=== PATIENT | male | born 1950 | race Asian ===

== ENCOUNTER 2017-06-29 18:34 | Inpatient (IN) | payer MEDICARE, OTHER ==
[2017-06-29] MEDS: IPRATROPIUM (NEB) 0.5 MG/2.5 ML AMP INH (18:57)
[2017-06-29] MEDS: ALBUTEROL 0.5% (NEB) 2.5 MG/0.5 ML AMP INH (18:57)
[2017-06-29] MEDS: METHYLPREDNISOLONE 125 MG INJ IV (19:16)
[2017-06-29 19:45] LABS: ADD MAN DIFF? NO
[2017-06-29 19:48] LABS: WHITE BLOOD COUNT 9.1 10^3/ul (4.8-10.8)
[2017-06-29 19:48] LABS: BASOPHIL # 0.2 10^3/ul (0.0-0.1); EOSINOPHILS # 0.9 10^3/ul (0.0-0.5); EOSINOPHILS % 10.3 % (0.0-7.0); HEMATOCRIT 34.1 % (42.0-52.0); HEMOGLOBIN 10.7 g/dl (14.0-18.0); LYMPHOCYTES # 1.9 10^3/ul (0.8-2.9); LYMPHOCYTES % 20.8 % (15.0-51.0); MEAN CORPUSCULAR HEMOGLOBIN 31.8 pg (29.0-33.0); MEAN CORPUSCULAR HGB CONC 31.4 g/dl (32.0-37.0); MEAN CORPUSCULAR VOLUME 101.2 fl (82.0-101.0); MONOCYTE # 1.1 10^3/ul (0.3-0.9); MONOCYTES % 11.5 % (0.0-11.0); NEUTROPHILS % 55.2 % (39.0-77.0); PLATELET COUNT 338 10^3/UL (140-415); RED BLOOD COUNT 3.37 10^6/ul (4.70-6.10); RED CELL DISTRIBUTION WIDTH 17.9 % (11.5-14.5)
[2017-06-29] MEDS: LORAZEPAM 2 MG INJ IV (20:00)
[2017-06-29 20:08] LABS: ANION GAP 13 (8-16); BLOOD UREA NITROGEN 27 mg/dl (7-20); CALCIUM 9.1 mg/dl (8.4-10.2); CARBON DIOXIDE 34 mmol/L (21-31); CHLORIDE 100 mmol/L (97-110); CREATININE 3.32 mg/dl (0.61-1.24); GLUCOSE 126 mg/dl (70-220); POTASSIUM 3.7 mmol/L (3.5-5.1); SODIUM 143 mmol/L (135-144)
[2017-06-29 20:21] LABS: TROPONIN-I < 0.012 ng/ml (0.000-0.120)
[2017-06-29] MEDS ORDERED: NICARDipine HCL 30 MG CAPSULE PO (20:30)
[2017-06-29] MEDS: NICARDipine HCL 30 MG CAPSULE GTB (21:14)
[2017-06-30] MEDS ORDERED: ONDANSETRON 4 MG INJ IV
[2017-06-30] MEDS ORDERED: NACL 0.9% 3 ML SYG IV
[2017-06-30] MEDS: SOD CHLORIDE 0.9% 1,000 ML IV ×2 (00:26→21:55)
[2017-06-30] MEDS: LOSARTAN 50 MG TAB GTB ×3 (00:27→23:41)
[2017-06-30] MEDS: DILTIAZEM 30 MG TAB GTB ×2 (00:27→07:00)
[2017-06-30] MEDS: METOPROLOL 100 MG TAB GTB ×3 (00:28→23:42)
[2017-06-30] MEDS: QUETIAPINE 25 MG TAB GTB ×3 (00:28→23:42)
[2017-06-30] MEDS: CHLORHEXIDINE GLUCONATE 15 ML UD CUP MM ×3 (00:29→23:43)
[2017-06-30] MEDS ORDERED: ZOLPIDEM 5 MG TAB GTB (00:30)
[2017-06-30] MEDS: LEVALBUTEROL (NEB) 0.63 MG/3 ML AMP HHN ×6 (01:04→20:38)
[2017-06-30] MEDS: SUCRALFATE (100 MG/ML) 10ML CUP GTB ×4 (06:59→23:40)
[2017-06-30 07:55] LABS: ADD MAN DIFF? NO
[2017-06-30 08:07] LABS: WHITE BLOOD COUNT 6.7 10^3/ul (4.8-10.8)
[2017-06-30 08:07] LABS: ABNORMAL IP MESSAGE 1; BASOPHILS % 0.3 % (0.0-2.0); HEMATOCRIT 32.8 % (42.0-52.0); HEMOGLOBIN 10.4 g/dl (14.0-18.0); LYMPHOCYTES # 0.4 10^3/ul (0.8-2.9); LYMPHOCYTES % 5.2 % (15.0-51.0); MEAN CORPUSCULAR HEMOGLOBIN 31.7 pg (29.0-33.0); MEAN CORPUSCULAR HGB CONC 31.7 g/dl (32.0-37.0); MONOCYTES % 0.4 % (0.0-11.0); NEUTROPHIL # 6.3 10^3/ul (1.6-7.5); NEUTROPHILS % 93.7 % (39.0-77.0); PLATELET COUNT 357 10^3/UL (140-415); POSITIVE DIFF @See below; RED BLOOD COUNT 3.28 10^6/ul (4.70-6.10); RED CELL DISTRIBUTION WIDTH 18.2 % (11.5-14.5)
[2017-06-30 08:31] LABS: DIGOXIN < 0.4 ng/ml (1.0-2.0)
[2017-06-30 08:34] LABS: ALANINE AMINOTRANSFERASE 21 IU/L (13-69); ALBUMIN 3.8 g/dl (3.3-4.9); ALBUMIN/GLOBULIN RATIO 1.02; ALKALINE PHOSPHATASE 105 IU/L (42-121); ANION GAP 22 (8-16); ASPARTATE AMINO TRANSFERASE 27 IU/L (15-46); BLOOD UREA NITROGEN 37 mg/dl (7-20); CALCIUM 8.9 mg/dl (8.4-10.2); CARBON DIOXIDE 27 mmol/L (21-31); CHLORIDE 98 mmol/L (97-110); CHOL/HDL RATIO 2.9 RATIO; CHOLESTEROL 144 mg/dl (100-200); CREATININE 3.96 mg/dl (0.61-1.24); GLUCOSE 222 mg/dl (70-220); HDL CHOLESTEROL 49 mg/dl (30-78); LDL CHOLESTEROL,CALCULATED 72 mg/dl; MAGNESIUM 2.3 mg/dl (1.7-2.5); POTASSIUM 4.9 mmol/L (3.5-5.1); SODIUM 142 mmol/L (135-144); TOTAL PROTEIN 7.5 g/dl (6.1-8.1); TRIGLYCERIDES 114 mg/dl (0-149)
[2017-06-30] MEDS: AMIODARONE 200 MG TAB GTB (08:50)
[2017-06-30] MEDS: LANTHANUM 500 MG CHEW GTB ×3 (08:50→23:41)
[2017-06-30] MEDS: LANSOPRAZOLE 30 MG CAP GTB (08:50)
[2017-06-30] MEDS: METHYLPREDNISOLONE 40 MG INJ IV ×2 (08:51→21:41)
[2017-06-30 09:01] LABS: B-TYPE NATRIURETIC PEPTIDE 61300 PG/ML (0-125)
[2017-06-30 09:03] LABS: BILIRUBIN,INDIRECT 0.1 mg/dl (0-1.1); BILIRUBIN,TOTAL 0.1 mg/dl (0.2-1.3)
[2017-06-30] MEDS: DIGOXIN 500 MCG INJ IV (11:24)
[2017-06-30] MEDS: DILTIAZEM 60 MG TAB GTB ×3 (12:34→23:43)
[2017-06-30 16:28] LABS: HEPATITIS B SURFACE ANTIGEN NEGATIVE (NEGATIVE)
[2017-06-30 16:58] LABS: HEPATITIS B SURFACE ANTIBODY NEGATIVE (NEGATIVE)
[2017-06-30] MEDS: LORAZEPAM 2 MG INJ IV (17:01)
[2017-07-01] MEDS: LEVALBUTEROL (NEB) 0.63 MG/3 ML AMP HHN ×6 (00:20→20:03)
[2017-07-01] MEDS: SUCRALFATE (100 MG/ML) 10ML CUP GTB ×4 (05:32→23:56)
[2017-07-01] MEDS: DILTIAZEM 60 MG TAB GTB ×3 (05:32→22:23)
[2017-07-01] MEDS: LANTHANUM 500 MG CHEW GTB ×3 (09:04→22:20)
[2017-07-01] MEDS: METHYLPREDNISOLONE 40 MG INJ IV (09:05)
[2017-07-01] MEDS: LANSOPRAZOLE 30 MG CAP GTB (09:05)
[2017-07-01] MEDS: AMIODARONE 200 MG TAB GTB (09:08)
[2017-07-01] MEDS: METOPROLOL 100 MG TAB GTB ×2 (10:10→22:19)
[2017-07-01] MEDS: CHLORHEXIDINE GLUCONATE 15 ML UD CUP MM ×2 (12:34→23:57)
[2017-07-01] MEDS: QUETIAPINE 25 MG TAB GTB ×2 (12:35→23:56)
[2017-07-01] MEDS: LOSARTAN 50 MG TAB GTB ×2 (12:35→23:57)
[2017-07-01] MEDS: DIGOXIN 0.125 MG TAB GTB (12:37)
[2017-07-01] MEDS: LORAZEPAM 2 MG INJ IV (14:45)
[2017-07-01] MEDS: SOD CHLORIDE 0.9% 1,000 ML IV (15:05)
[2017-07-02] MEDS: LEVALBUTEROL (NEB) 0.63 MG/3 ML AMP HHN ×6 (00:35→20:26)
[2017-07-02] MEDS: LORAZEPAM 2 MG INJ IV (01:11)
[2017-07-02] MEDS: SUCRALFATE (100 MG/ML) 10ML CUP GTB ×4 (06:11→23:37)
[2017-07-02] MEDS: DILTIAZEM 60 MG TAB GTB ×3 (06:12→22:26)
[2017-07-02 07:03] LABS: ADD MAN DIFF? NO
[2017-07-02 07:12] LABS: ABNORMAL IP MESSAGE 1; BASOPHILS % 0.1 % (0.0-2.0); HEMOGLOBIN 10.8 g/dl (14.0-18.0); LYMPHOCYTES # 0.5 10^3/ul (0.8-2.9); LYMPHOCYTES % 3.9 % (15.0-51.0); MEAN CORPUSCULAR HGB CONC 32.7 g/dl (32.0-37.0); MEAN CORPUSCULAR VOLUME 97.6 fl (82.0-101.0); MEAN PLATELET VOLUME 9.6 fl (7.4-10.4); MONOCYTE # 0.8 10^3/ul (0.3-0.9); MONOCYTES % 5.6 % (0.0-11.0); NEUTROPHIL # 12.4 10^3/ul (1.6-7.5); PLATELET COUNT 289 10^3/UL (140-415); POSITIVE DIFF @See below; RED BLOOD COUNT 3.38 10^6/ul (4.70-6.10)
[2017-07-02 07:12] LABS: WHITE BLOOD COUNT 13.8 10^3/ul (4.8-10.8)
[2017-07-02 07:29] LABS: PHOSPHORUS 7.7 mg/dl (2.5-4.9)
[2017-07-02] MEDS: LANTHANUM 500 MG CHEW GTB ×3 (07:58→21:37)
[2017-07-02] MEDS: LANSOPRAZOLE 30 MG CAP GTB (07:59)
[2017-07-02] MEDS: LOSARTAN 50 MG TAB GTB ×2 (07:59→23:42)
[2017-07-02] MEDS: AMIODARONE 200 MG TAB GTB (07:59)
[2017-07-02] MEDS: METOPROLOL 100 MG TAB GTB ×2 (08:00→21:32)
[2017-07-02 08:57] LABS: ANION GAP 19 (8-16); SODIUM 136 mmol/L (135-144)
[2017-07-02 09:00] LABS: CHLORIDE 96 mmol/L (97-110); POTASSIUM 4.4 mmol/L (3.5-5.1)
[2017-07-02 09:01] LABS: BLOOD UREA NITROGEN 68 mg/dl (7-20); CALCIUM 7.8 mg/dl (8.4-10.2); CARBON DIOXIDE 25 mmol/L (21-31); GLUCOSE 249 mg/dl (70-220)
[2017-07-02] MEDS: QUETIAPINE 25 MG TAB GTB ×2 (12:06→23:42)
[2017-07-02] MEDS: TIOTROPIUM 18 MCG CAPSULE INHA DEV INH (12:07)
[2017-07-02] MEDS: CHLORHEXIDINE GLUCONATE 15 ML UD CUP MM ×2 (12:07→23:42)
[2017-07-02] MEDS: BUDESONIDE (NEB) 0.5MG/2ML AMP HHN ×2 (13:49→20:08)
[2017-07-03] MEDS: LEVALBUTEROL (NEB) 0.63 MG/3 ML AMP HHN ×6 (01:16→20:21)
[2017-07-03] MEDS: SUCRALFATE (100 MG/ML) 10ML CUP GTB ×4 (05:23→23:58)
[2017-07-03] MEDS: DILTIAZEM 60 MG TAB GTB ×3 (05:23→21:54)
[2017-07-03 07:38] LABS: ADD MAN DIFF? NO
[2017-07-03 07:46] LABS: BASOPHILS % 0.1 % (0.0-2.0); EOSINOPHILS % 0.2 % (0.0-7.0); HEMATOCRIT 32.1 % (42.0-52.0); HEMOGLOBIN 10.3 g/dl (14.0-18.0); LYMPHOCYTES # 1.1 10^3/ul (0.8-2.9); LYMPHOCYTES % 8.9 % (15.0-51.0); MEAN CORPUSCULAR HEMOGLOBIN 31.4 pg (29.0-33.0); MEAN CORPUSCULAR HGB CONC 32.1 g/dl (32.0-37.0); MEAN CORPUSCULAR VOLUME 97.9 fl (82.0-101.0); MONOCYTE # 0.8 10^3/ul (0.3-0.9); MONOCYTES % 6.8 % (0.0-11.0); NEUTROPHIL # 9.9 10^3/ul (1.6-7.5); NEUTROPHILS % 83.6 % (39.0-77.0); PLATELET COUNT 335 10^3/UL (140-415); RED BLOOD COUNT 3.28 10^6/ul (4.70-6.10); RED CELL DISTRIBUTION WIDTH 16.7 % (11.5-14.5)
[2017-07-03 07:46] LABS: WHITE BLOOD COUNT 11.9 10^3/ul (4.8-10.8)
[2017-07-03 08:13] LABS: ANION GAP 16 (8-16); BLOOD UREA NITROGEN 95 mg/dl (7-20); CALCIUM 7.7 mg/dl (8.4-10.2); CARBON DIOXIDE 26 mmol/L (21-31); CHLORIDE 96 mmol/L (97-110); CREATININE 5.45 mg/dl (0.61-1.24); GLUCOSE 197 mg/dl (70-220); PHOSPHORUS 4.6 mg/dl (2.5-4.9); POTASSIUM 3.9 mmol/L (3.5-5.1); SODIUM 134 mmol/L (135-144)
[2017-07-03] MEDS: AMIODARONE 200 MG TAB GTB (09:00)
[2017-07-03] MEDS: METOPROLOL 100 MG TAB GTB ×2 (09:00→21:53)
[2017-07-03] MEDS: BUDESONIDE (NEB) 0.5MG/2ML AMP HHN ×2 (09:09→20:34)
[2017-07-03] MEDS: LANSOPRAZOLE 30 MG CAP GTB (09:49)
[2017-07-03] MEDS: LANTHANUM 500 MG CHEW GTB ×3 (09:49→21:54)
[2017-07-03] MEDS: TIOTROPIUM 18 MCG CAPSULE INHA DEV INH (09:57)
[2017-07-03] MEDS: CHLORHEXIDINE GLUCONATE 15 ML UD CUP MM ×2 (11:47→23:59)
[2017-07-03] MEDS: QUETIAPINE 25 MG TAB GTB ×2 (11:47→23:58)
[2017-07-03] MEDS: LOSARTAN 50 MG TAB GTB ×2 (11:57→23:59)
[2017-07-03] MEDS: DIGOXIN 0.125 MG TAB GTB (12:55)
[2017-07-03] MEDS: DIPHENHYDRAMINE 50 MG INJ IV (16:21)
[2017-07-03] MEDS: LORAZEPAM 2 MG INJ IV (16:49)
[2017-07-03] MEDS: HALOPERIDOL 5 MG INJ IM (21:49)
[2017-07-04] MEDS: LORAZEPAM 2 MG INJ IV ×3 (00:20→16:59)
[2017-07-04] MEDS: LEVALBUTEROL (NEB) 0.63 MG/3 ML AMP HHN ×6 (01:37→20:09)
[2017-07-04] MEDS: SUCRALFATE (100 MG/ML) 10ML CUP GTB ×3 (05:25→17:59)
[2017-07-04] MEDS: DILTIAZEM 60 MG TAB GTB ×2 (05:29→13:16)
[2017-07-04 06:51] LABS: WHITE BLOOD COUNT 9.4 10^3/ul (4.8-10.8)
[2017-07-04 06:51] LABS: ADD MAN DIFF? NO; BASOPHILS % 0.3 % (0.0-2.0); EOSINOPHILS # 0.1 10^3/ul (0.0-0.5); HEMATOCRIT 34.5 % (42.0-52.0); HEMOGLOBIN 11.4 g/dl (14.0-18.0); LYMPHOCYTES # 1.2 10^3/ul (0.8-2.9); LYMPHOCYTES % 12.9 % (15.0-51.0); MEAN CORPUSCULAR HEMOGLOBIN 31.8 pg (29.0-33.0); MEAN CORPUSCULAR VOLUME 96.4 fl (82.0-101.0); MEAN PLATELET VOLUME 8.7 fl (7.4-10.4); MONOCYTE # 0.8 10^3/ul (0.3-0.9); MONOCYTES % 8.7 % (0.0-11.0); NEUTROPHIL # 7.2 10^3/ul (1.6-7.5); NEUTROPHILS % 76.8 % (39.0-77.0); PLATELET COUNT 354 10^3/UL (140-415); RED BLOOD COUNT 3.58 10^6/ul (4.70-6.10); RED CELL DISTRIBUTION WIDTH 16.2 % (11.5-14.5)
[2017-07-04 07:21] LABS: PHOSPHORUS 3.8 mg/dl (2.5-4.9)
[2017-07-04 07:21] LABS: MAGNESIUM 2.3 mg/dl (1.7-2.5)
[2017-07-04 07:37] LABS: ANION GAP 12 (8-16); BLOOD UREA NITROGEN 53 mg/dl (7-20); CALCIUM 7.9 mg/dl (8.4-10.2); CARBON DIOXIDE 30 mmol/L (21-31); CHLORIDE 97 mmol/L (97-110); CREATININE 3.64 mg/dl (0.61-1.24); GLUCOSE 135 mg/dl (70-220); POTASSIUM 3.5 mmol/L (3.5-5.1); SODIUM 135 mmol/L (135-144)
[2017-07-04] MEDS: BUDESONIDE (NEB) 0.5MG/2ML AMP HHN ×2 (08:36→20:09)
[2017-07-04] MEDS: AMIODARONE 200 MG TAB GTB (09:28)
[2017-07-04] MEDS: TIOTROPIUM 18 MCG CAPSULE INHA DEV INH (09:28)
[2017-07-04] MEDS: LANSOPRAZOLE 30 MG CAP GTB (09:28)
[2017-07-04] MEDS: LANTHANUM 500 MG CHEW GTB ×3 (09:28→21:35)
[2017-07-04] MEDS: METOPROLOL 100 MG TAB GTB (09:29)
[2017-07-04] MEDS: QUETIAPINE 25 MG TAB GTB ×2 (11:46→21:37)
[2017-07-04] MEDS: LOSARTAN 50 MG TAB GTB (11:47)
[2017-07-04] MEDS: CHLORHEXIDINE GLUCONATE 15 ML UD CUP MM (11:47)
[2017-07-04] MEDS: DILTIAZEM 30 MG TAB GTB (21:36)
[2017-07-04] MEDS: METOPROLOL 50 MG TAB GTB (21:39)
[2017-07-05] MEDS: SUCRALFATE (100 MG/ML) 10ML CUP GTB
[2017-07-05] MEDS: CHLORHEXIDINE GLUCONATE 15 ML UD CUP MM ×3 (00:36→23:56)
[2017-07-05] MEDS: LOSARTAN 50 MG TAB GTB ×2 (00:37→12:44)
[2017-07-05] MEDS: LEVALBUTEROL (NEB) 0.63 MG/3 ML AMP HHN ×6 (01:00→20:58)
[2017-07-05] MEDS ORDERED: LIDOCAINE 2% (MDV) 20 ML INJ INJ (01:00)
[2017-07-05] MEDS: LORAZEPAM 2 MG INJ IV ×2 (02:31→20:21)
[2017-07-05] MEDS: hydrALAzine 20 MG INJ IV (03:06)
[2017-07-05] MEDS: SUCRALFATE 100 MG/ML GTB ×4 (05:49→23:55)
[2017-07-05] MEDS: DILTIAZEM 30 MG TAB GTB (05:50)
[2017-07-05] MEDS: BUDESONIDE (NEB) 0.5MG/2ML AMP HHN ×2 (09:00→21:11)
[2017-07-05] MEDS: TIOTROPIUM 18 MCG CAPSULE INHA DEV INH ×2 (09:00→09:07)
[2017-07-05] MEDS: METOPROLOL 50 MG TAB GTB ×2 (09:00→20:20)
[2017-07-05] MEDS: LANTHANUM 500 MG CHEW GTB ×3 (09:07→20:18)
[2017-07-05] MEDS: LANSOPRAZOLE 30 MG CAP GTB (09:07)
[2017-07-05] MEDS: QUETIAPINE 25 MG TAB GTB ×3 (09:08→20:18)
[2017-07-05] MEDS: AMIODARONE 200 MG TAB GTB (09:09)
[2017-07-05 09:49] LABS: ALANINE AMINOTRANSFERASE 34 IU/L (13-69); ALKALINE PHOSPHATASE 106 IU/L (42-121); ANION GAP 13 (8-16); ASPARTATE AMINO TRANSFERASE 28 IU/L (15-46); BILIRUBIN,INDIRECT 0.2 mg/dl (0-1.1); BILIRUBIN,TOTAL 0.2 mg/dl (0.2-1.3); BLOOD UREA NITROGEN 66 mg/dl (7-20); CALCIUM 7.4 mg/dl (8.4-10.2); CARBON DIOXIDE 27 mmol/L (21-31); CHLORIDE 97 mmol/L (97-110); CREATININE 4.62 mg/dl (0.61-1.24); GLUCOSE 155 mg/dl (70-220); POTASSIUM 3.4 mmol/L (3.5-5.1); SODIUM 134 mmol/L (135-144)
[2017-07-05 09:50] LABS: ALBUMIN/GLOBULIN RATIO 1.03; TOTAL PROTEIN 5.9 g/dl (6.1-8.1)
[2017-07-05] MEDS: DIGOXIN 0.125 MG TAB GTB (12:43)
[2017-07-05] MEDS: DILTIAZEM 60 MG TAB GTB ×2 (14:49→21:23)
[2017-07-06] MEDS: LEVALBUTEROL (NEB) 0.63 MG/3 ML AMP HHN ×5 (01:13→16:19)
[2017-07-06] MEDS: DIPHENHYDRAMINE 50 MG INJ IV ×2 (03:25→10:05)
[2017-07-06] MEDS: hydrALAzine 20 MG INJ IV (04:02)
[2017-07-06] MEDS: SUCRALFATE (100 MG/ML) 10ML CUP GTB ×3 (06:18→17:35)
[2017-07-06] MEDS: DILTIAZEM 60 MG TAB GTB ×2 (06:19→14:54)
[2017-07-06] MEDS: LORAZEPAM 2 MG INJ IV ×2 (06:58→10:05)
[2017-07-06 08:08] LABS: ADD MAN DIFF? NO
[2017-07-06 08:10] LABS: BASOPHILS % 0.3 % (0.0-2.0); EOSINOPHILS # 0.5 10^3/ul (0.0-0.5); EOSINOPHILS % 5.4 % (0.0-7.0); HEMATOCRIT 31.5 % (42.0-52.0); HEMOGLOBIN 10.5 g/dl (14.0-18.0); LYMPHOCYTES # 0.7 10^3/ul (0.8-2.9); LYMPHOCYTES % 7.2 % (15.0-51.0); MEAN CORPUSCULAR HEMOGLOBIN 32.3 pg (29.0-33.0); MEAN CORPUSCULAR HGB CONC 33.3 g/dl (32.0-37.0); MEAN CORPUSCULAR VOLUME 96.9 fl (82.0-101.0); MEAN PLATELET VOLUME 8.7 fl (7.4-10.4); MONOCYTE # 0.7 10^3/ul (0.3-0.9); MONOCYTES % 7.7 % (0.0-11.0); NEUTROPHIL # 7.2 10^3/ul (1.6-7.5); NEUTROPHILS % 79.1 % (39.0-77.0); PLATELET COUNT 304 10^3/UL (140-415); RED BLOOD COUNT 3.25 10^6/ul (4.70-6.10); RED CELL DISTRIBUTION WIDTH 16.5 % (11.5-14.5)
[2017-07-06 08:10] LABS: WHITE BLOOD COUNT 9.1 10^3/ul (4.8-10.8)
[2017-07-06 08:31] LABS: ANION GAP 12 (8-16); BLOOD UREA NITROGEN 41 mg/dl (7-20); CALCIUM 7.8 mg/dl (8.4-10.2); CARBON DIOXIDE 32 mmol/L (21-31); CHLORIDE 96 mmol/L (97-110); CREATININE 3.59 mg/dl (0.61-1.24); GLUCOSE 155 mg/dl (70-220); POTASSIUM 3.6 mmol/L (3.5-5.1); SODIUM 136 mmol/L (135-144)
[2017-07-06] MEDS: BUDESONIDE (NEB) 0.5MG/2ML AMP HHN (08:35)
[2017-07-06] MEDS ORDERED: LORAZEPAM 2 MG INJ IV (09:50)
[2017-07-06] MEDS: LANTHANUM 500 MG CHEW GTB ×2 (10:02→12:54)
[2017-07-06] MEDS: LANSOPRAZOLE 30 MG CAP GTB (10:03)
[2017-07-06] MEDS: QUETIAPINE 25 MG TAB GTB ×2 (10:03→12:53)
[2017-07-06] MEDS: METOPROLOL 50 MG TAB GTB (10:04)
[2017-07-06] MEDS: AMIODARONE 200 MG TAB GTB (10:04)
[2017-07-06] MEDS ORDERED: LORAZEPAM 0.5 MG TAB GTB (10:30)
[2017-07-06] MEDS: CHLORHEXIDINE GLUCONATE 15 ML UD CUP MM (12:53)
[2017-07-06] MEDS: LOSARTAN 50 MG TAB GTB ×2 (12:54)
[2017-07-07] MEDS ORDERED: ASPIRIN 81 MG TAB NGT (09:00)
== END 2017-07-06 18:27 | DRG 205 ==
LOC: MS4 07-04 23:15 → TEL 07-03 21:09 → E/R 18:34 → TEL 06-30 20:04 → MS4 20:41
PROC: 0B21XFZ Change Tracheostomy Device in Trachea, External Approach (ICD-10-PCS; 2017-06-29)
PROC: 5A1D70Z Performance of Urinary Filtration, Intermittent, Less than 6 Hours Per Day (ICD-10-PCS; principal; 2017-06-30)
DX: J95.09 Other tracheostomy complication (principal); J96.21 Acute and chronic respiratory failure with hypoxia; N18.6 End stage renal disease; J96.22 Acute and chronic respiratory failure with hypercapnia; J44.1 Chronic obstructive pulmonary disease with (acute) exacerbation; I13.2 Hypertensive heart and chronic kidney disease with heart failure and with stage 5 chronic kidney disease, or end stage renal disease; G93.1 Anoxic brain damage, not elsewhere classified; N25.81 Secondary hyperparathyroidism of renal origin; I50.42 Chronic combined systolic (congestive) and diastolic (congestive) heart failure; I42.9 Cardiomyopathy, unspecified; I48.91 Unspecified atrial fibrillation; E11.22 Type 2 diabetes mellitus with diabetic chronic kidney disease; Z99.2 Dependence on renal dialysis; Z86.74 Personal history of sudden cardiac arrest; Z93.1 Gastrostomy status; D63.1 Anemia in chronic kidney disease; Z86.73 Personal history of transient ischemic attack (TIA), and cerebral infarction without residual deficits; F41.9 Anxiety disorder, unspecified; R00.0 Tachycardia, unspecified; R13.0 Aphagia
CPT/HCPCS: 70360; 71045; 80048; 80053; 80061; 80162; 82962; 83036; 83735; 83880; 84100; 84443; 84484; 85025; 86706; 87081; 87340; 90935; 93005; 93306; 94640; 94644; 94664; 96374; 96375; 99291-25

== ENCOUNTER 2017-11-21 10:57 | Inpatient (IN) | payer MEDICARE, OTHER ==
[2017-11-21 11:40] LABS: ADD MAN DIFF? NO
[2017-11-21 11:43] LABS: WHITE BLOOD COUNT 5.6 10^3/ul (4.8-10.8)
[2017-11-21 11:43] LABS: BASOPHIL # 0.1 10^3/ul (0.0-0.1); BASOPHILS % 1.1 % (0.0-2.0); EOSINOPHILS # 0.4 10^3/ul (0.0-0.5); EOSINOPHILS % 6.3 % (0.0-7.0); HEMATOCRIT 22.6 % (42.0-52.0); HEMOGLOBIN 7.1 g/dl (14.0-18.0); LYMPHOCYTES # 0.7 10^3/ul (0.8-2.9); LYMPHOCYTES % 13.2 % (15.0-51.0); MEAN CORPUSCULAR HEMOGLOBIN 29.1 pg (29.0-33.0); MEAN CORPUSCULAR HGB CONC 31.4 g/dl (32.0-37.0); MEAN CORPUSCULAR VOLUME 92.6 fl (82.0-101.0); MEAN PLATELET VOLUME 8.9 fl (7.4-10.4); MONOCYTE # 0.6 10^3/ul (0.3-0.9); MONOCYTES % 11.3 % (0.0-11.0); NEUTROPHIL # 3.8 10^3/ul (1.6-7.5); NEUTROPHILS % 67.7 % (39.0-77.0); PLATELET COUNT 119 10^3/UL (140-415); RED BLOOD COUNT 2.44 10^6/ul (4.70-6.10); RED CELL DISTRIBUTION WIDTH 15.2 % (11.5-14.5)
[2017-11-21] MEDS: PANTOPRAZOLE 40 MG INJ IV (11:59)
[2017-11-21 12:02] LABS: INR 1.28; PROTIME 16.2 Sec (11.9-14.9); PT RATIO 1.3
[2017-11-21 12:03] LABS: PARTIAL THROMBOPLASTIN TIME 43.6 Sec (23.0-35.0)
[2017-11-21 12:13] LABS: ALANINE AMINOTRANSFERASE 12 IU/L (13-69); ALBUMIN 2.8 g/dl (3.3-4.9); ALKALINE PHOSPHATASE 70 IU/L (42-121); ANION GAP 13 (8-16); ASPARTATE AMINO TRANSFERASE 19 IU/L (15-46); BILIRUBIN,INDIRECT 0.7 mg/dl (0-1.1); BILIRUBIN,TOTAL 0.7 mg/dl (0.2-1.3); BLOOD UREA NITROGEN 33 mg/dl (7-20); CALCIUM 8.2 mg/dl (8.4-10.2); CARBON DIOXIDE 32 mmol/L (21-31); CHLORIDE 97 mmol/L (97-110); CREATININE 4.35 mg/dl (0.61-1.24); GLUCOSE 140 mg/dl (70-220); POTASSIUM 3.4 mmol/L (3.5-5.1); SODIUM 139 mmol/L (135-144); TOTAL PROTEIN 5.9 g/dl (6.1-8.1)
[2017-11-21 12:19] LABS: TROPONIN-I 0.014 ng/ml (0.000-0.120)
[2017-11-21] MEDS ORDERED: BISACODYL 10 MG SUPP PR (13:00)
[2017-11-21] MEDS ORDERED: ALBUTEROL 0.083% (NEB) 2.5 MG/3 ML AMP NEB (13:00)
[2017-11-21 13:26] LABS: IRON 72 ug/dl (35-150)
[2017-11-21 13:36] LABS: % IRON SATURATION 41 % SAT (22-52); TOTAL IRON BINDING CAPACITY 176 ug/dl (241-421)
[2017-11-21] MEDS: POTASSIUM CHLORIDE 20 MEQ POWDER FOR ORAL SOLN GTB (13:59)
[2017-11-21 15:47] LABS: IMMEDIATE SPIN CROSSMATCH 1 1
[2017-11-21] MEDS: ACETAMINOPHEN 650MG/20.3ML CUP GTB (16:48)
[2017-11-21] MEDS: EPOETIN 10000 UNITS/1 ML INJ (ESRD) SC ×2 (18:00→21:14)
[2017-11-21] MEDS: INSULIN ASPART [NOVOLOG] 3 ML PEN SC ×2 (18:00→20:17)
[2017-11-21] MEDS ORDERED: GLUCOSE GEL 15 GRAM TUBE BUCCAL (18:30)
[2017-11-21] MEDS ORDERED: DEXTROSE 50% 50 ML SYRINGE IV ×2 (18:30)
[2017-11-21] MEDS ORDERED: GLUCOSE GEL 15 GRAM TUBE PO ×2 (18:30)
[2017-11-21] MEDS ORDERED: GLUCAGON 1 MG INJ IM (18:30)
[2017-11-21] MEDS: TAMSULOSIN (SR) 0.4 MG CAP PO (20:35)
[2017-11-21] MEDS: LOSARTAN 25 MG TAB PO (20:36)
[2017-11-21] MEDS ORDERED: NON-FORMULARY/PATIENT OWN MED (Protein Supplement (Promod) 30 ML) PO (21:00)
[2017-11-22] MEDS: ACCU-CHEK XX (01:57)
[2017-11-22 05:36] LABS: ADD MAN DIFF? NO
[2017-11-22 05:39] LABS: BASOPHIL # 0.1 10^3/ul (0.0-0.1); BASOPHILS % 1.7 % (0.0-2.0); EOSINOPHILS # 0.4 10^3/ul (0.0-0.5); EOSINOPHILS % 7.3 % (0.0-7.0); HEMOGLOBIN 8.2 g/dl (14.0-18.0); LYMPHOCYTES % 17.8 % (15.0-51.0); MEAN CORPUSCULAR HEMOGLOBIN 29.8 pg (29.0-33.0); MEAN CORPUSCULAR HGB CONC 32.8 g/dl (32.0-37.0); MEAN CORPUSCULAR VOLUME 90.9 fl (82.0-101.0); MEAN PLATELET VOLUME 9.8 fl (7.4-10.4); MONOCYTE # 0.6 10^3/ul (0.3-0.9); MONOCYTES % 10.3 % (0.0-11.0); NEUTROPHIL # 3.4 10^3/ul (1.6-7.5); NEUTROPHILS % 62.5 % (39.0-77.0); PLATELET COUNT 121 10^3/UL (140-415); RED BLOOD COUNT 2.75 10^6/ul (4.70-6.10); RED CELL DISTRIBUTION WIDTH 15.3 % (11.5-14.5)
[2017-11-22 05:39] LABS: WHITE BLOOD COUNT 5.5 10^3/ul (4.8-10.8)
[2017-11-22 06:06] LABS: ANION GAP 13 (8-16); BLOOD UREA NITROGEN 45 mg/dl (7-20); CARBON DIOXIDE 29 mmol/L (21-31); CHLORIDE 100 mmol/L (97-110); CREATININE 5.26 mg/dl (0.61-1.24); GLUCOSE 90 mg/dl (70-220); MAGNESIUM 2.2 mg/dl (1.7-2.5); PHOSPHORUS 4.5 mg/dl (2.5-4.9); SODIUM 138 mmol/L (135-144)
[2017-11-22] MEDS: PANTOPRAZOLE (EC) 40 MG TAB PO (06:19)
[2017-11-22] MEDS: INSULIN ASPART [NOVOLOG] 3 ML PEN SC ×4 (08:00→20:48)
[2017-11-22 08:02] LABS: HEPATITIS B SURFACE ANTIGEN NEGATIVE (NEGATIVE)
[2017-11-22] MEDS: HEPARIN 1000 UNITS/ML 10 ML INJ CATHETER (11:01)
[2017-11-22] MEDS: MULTIVIT/CA CARB/B CMPLX/FA TAB PO (11:05)
[2017-11-22] MEDS: LOSARTAN 25 MG TAB PO ×2 (11:08→20:43)
[2017-11-22] MEDS: EPOETIN 10000 UNITS/1 ML INJ (ESRD) SC (17:38)
[2017-11-22] MEDS: TAMSULOSIN (SR) 0.4 MG CAP PO (20:44)
[2017-11-23] MEDS: ACCU-CHEK XX (02:00)
[2017-11-23 05:40] LABS: ADD MAN DIFF? NO
[2017-11-23 05:48] LABS: WHITE BLOOD COUNT 6.2 10^3/ul (4.8-10.8)
[2017-11-23 05:48] LABS: BASOPHIL # 0.1 10^3/ul (0.0-0.1); BASOPHILS % 1.4 % (0.0-2.0); EOSINOPHILS # 0.5 10^3/ul (0.0-0.5); EOSINOPHILS % 8.4 % (0.0-7.0); HEMATOCRIT 25.1 % (42.0-52.0); HEMOGLOBIN 8.1 g/dl (14.0-18.0); LYMPHOCYTES % 15.8 % (15.0-51.0); MEAN CORPUSCULAR HGB CONC 32.3 g/dl (32.0-37.0); MEAN PLATELET VOLUME 9.7 fl (7.4-10.4); MONOCYTE # 0.7 10^3/ul (0.3-0.9); MONOCYTES % 11.4 % (0.0-11.0); NEUTROPHIL # 3.9 10^3/ul (1.6-7.5); NEUTROPHILS % 62.7 % (39.0-77.0); PLATELET COUNT 106 10^3/UL (140-415); RED CELL DISTRIBUTION WIDTH 15.5 % (11.5-14.5)
[2017-11-23] MEDS: PANTOPRAZOLE (EC) 40 MG TAB PO (06:09)
[2017-11-23 06:45] LABS: ANION GAP 10 (8-16); BLOOD UREA NITROGEN 27 mg/dl (7-20); CALCIUM 7.6 mg/dl (8.4-10.2); CARBON DIOXIDE 31 mmol/L (21-31); CHLORIDE 104 mmol/L (97-110); CREATININE 3.49 mg/dl (0.61-1.24); GLUCOSE 95 mg/dl (70-220); POTASSIUM 4.1 mmol/L (3.5-5.1); SODIUM 141 mmol/L (135-144)
[2017-11-23] MEDS: INSULIN ASPART [NOVOLOG] 3 ML PEN SC ×4 (08:00→20:31)
[2017-11-23] MEDS: MULTIVIT/CA CARB/B CMPLX/FA TAB PO (08:13)
[2017-11-23] MEDS: LOSARTAN 25 MG TAB PO ×2 (08:14→20:30)
[2017-11-23] MEDS: PEG/ELECTROLYTES 4L BTL PO ×2 (12:17→16:14)
[2017-11-23] MEDS: TAMSULOSIN (SR) 0.4 MG CAP PO (20:31)
[2017-11-24] MEDS: ACCU-CHEK XX (02:00)
[2017-11-24] MEDS: DIPHENHYDRAMINE 50 MG INJ IV ×3 (02:18→20:42)
[2017-11-24] MEDS: PANTOPRAZOLE (EC) 40 MG TAB PO (05:35)
[2017-11-24 06:12] LABS: ADD MAN DIFF? NO
[2017-11-24 06:21] LABS: WHITE BLOOD COUNT 7.9 10^3/ul (4.8-10.8)
[2017-11-24 06:21] LABS: BASOPHIL # 0.1 10^3/ul (0.0-0.1); BASOPHILS % 1.6 % (0.0-2.0); EOSINOPHILS # 0.6 10^3/ul (0.0-0.5); HEMATOCRIT 25.5 % (42.0-52.0); HEMOGLOBIN 8.1 g/dl (14.0-18.0); LYMPHOCYTES % 12.4 % (15.0-51.0); MEAN CORPUSCULAR HEMOGLOBIN 29.5 pg (29.0-33.0); MEAN CORPUSCULAR HGB CONC 31.8 g/dl (32.0-37.0); MEAN CORPUSCULAR VOLUME 92.7 fl (82.0-101.0); MEAN PLATELET VOLUME 9.6 fl (7.4-10.4); MONOCYTE # 0.7 10^3/ul (0.3-0.9); MONOCYTES % 8.7 % (0.0-11.0); NEUTROPHIL # 5.5 10^3/ul (1.6-7.5); NEUTROPHILS % 68.8 % (39.0-77.0); PLATELET COUNT 101 10^3/UL (140-415); RED BLOOD COUNT 2.75 10^6/ul (4.70-6.10); RED CELL DISTRIBUTION WIDTH 15.4 % (11.5-14.5)
[2017-11-24 06:39] LABS: ANION GAP 15 (8-16); BLOOD UREA NITROGEN 40 mg/dl (7-20); CARBON DIOXIDE 28 mmol/L (21-31); CHLORIDE 104 mmol/L (97-110); CREATININE 4.96 mg/dl (0.61-1.24); GLUCOSE 99 mg/dl (70-220); POTASSIUM 4.9 mmol/L (3.5-5.1); SODIUM 142 mmol/L (135-144)
[2017-11-24 06:55] LABS: CALCIUM 7.9 mg/dl (8.4-10.2)
[2017-11-24] MEDS: INSULIN ASPART [NOVOLOG] 3 ML PEN SC ×4 (08:00→21:00)
[2017-11-24] MEDS: MULTIVIT/CA CARB/B CMPLX/FA TAB PO (08:33)
[2017-11-24] MEDS: LOSARTAN 25 MG TAB PO ×2 (08:33→20:41)
[2017-11-24 10:44] LABS: OCCULT BLOOD STOOL POSITIVE (NEGATIVE)
[2017-11-24] MEDS: HEPARIN 1000 UNITS/ML 10 ML INJ CATHETER (13:21)
[2017-11-24 14:42] LABS: POTASSIUM 4.8 mmol/L (3.5-5.1)
[2017-11-24] MEDS: PROPOFOL 20 ML (15:15)
[2017-11-24] MEDS: LIDOCAINE 2% (SDV) 5 ML INJ (15:15)
[2017-11-24] MEDS: MIDAZOLAM 1 MG/ML 2 ML INJ (15:16)
[2017-11-24] MEDS: GLUCAGON 1 MG INJ (15:52)
[2017-11-24] MEDS: EPOETIN 10000 UNITS/1 ML INJ (ESRD) SC (18:38)
[2017-11-24] MEDS: TAMSULOSIN (SR) 0.4 MG CAP PO (20:42)
[2017-11-24] MEDS: DILTIAZEM (CD) 180 MG CAP PO (21:45)
[2017-11-24 23:08] LABS: TROPONIN-I 0.016 ng/ml (0.000-0.120)
[2017-11-25] MEDS ORDERED: DILTIAZEM-D5W 125MG/125ML DRIP 125 ML IV (02:00)
[2017-11-25] MEDS: ACCU-CHEK XX (02:00)
[2017-11-25 05:14] LABS: ADD MAN DIFF? NO
[2017-11-25] MEDS: PANTOPRAZOLE (EC) 40 MG TAB PO (05:14)
[2017-11-25 05:52] LABS: WHITE BLOOD COUNT 9.2 10^3/ul (4.8-10.8)
[2017-11-25 05:52] LABS: ABNORMAL IP MESSAGE 1; BASOPHIL # 0.1 10^3/ul (0.0-0.1); EOSINOPHILS # 0.6 10^3/ul (0.0-0.5); EOSINOPHILS % 6.3 % (0.0-7.0); HEMATOCRIT 26.8 % (42.0-52.0); HEMOGLOBIN 8.5 g/dl (14.0-18.0); LYMPHOCYTES # 1.1 10^3/ul (0.8-2.9); LYMPHOCYTES % 11.6 % (15.0-51.0); MEAN CORPUSCULAR HEMOGLOBIN 29.7 pg (29.0-33.0); MEAN CORPUSCULAR HGB CONC 31.7 g/dl (32.0-37.0); MEAN CORPUSCULAR VOLUME 93.7 fl (82.0-101.0); MEAN PLATELET VOLUME 10.4 fl (7.4-10.4); MONOCYTE # 0.9 10^3/ul (0.3-0.9); MONOCYTES % 9.6 % (0.0-11.0); NEUTROPHIL # 6.5 10^3/ul (1.6-7.5); NEUTROPHILS % 71.1 % (39.0-77.0); PLATELET COUNT 95 10^3/UL (140-415); POSITIVE DIFF @See below; RED BLOOD COUNT 2.86 10^6/ul (4.70-6.10); RED CELL DISTRIBUTION WIDTH 15.6 % (11.5-14.5)
[2017-11-25 06:03] LABS: TROPONIN-I 0.016 ng/ml (0.000-0.120)
[2017-11-25] MEDS: INSULIN ASPART [NOVOLOG] 3 ML PEN SC ×4 (07:59→20:39)
[2017-11-25] MEDS: MULTIVIT/CA CARB/B CMPLX/FA TAB PO (09:14)
[2017-11-25] MEDS: LOSARTAN 25 MG TAB PO ×2 (09:24→20:30)
[2017-11-25] MEDS: DIGOXIN 500 MCG INJ IV (11:17)
[2017-11-25] MEDS: TAMSULOSIN (SR) 0.4 MG CAP PO (20:30)
[2017-11-26] MEDS: ACCU-CHEK XX (02:00)
[2017-11-26] MEDS: PANTOPRAZOLE (EC) 40 MG TAB PO (07:20)
[2017-11-26] MEDS: INSULIN ASPART [NOVOLOG] 3 ML PEN SC ×4 (08:00→21:00)
[2017-11-26] MEDS: MULTIVIT/CA CARB/B CMPLX/FA TAB PO (08:39)
[2017-11-26] MEDS: LOSARTAN 25 MG TAB PO ×2 (08:40→21:06)
[2017-11-26] MEDS: DIPHENHYDRAMINE 50 MG INJ IV (11:39)
[2017-11-26] MEDS: HEPARIN 1000 UNITS/ML 10 ML INJ CATHETER (13:55)
[2017-11-26] MEDS: AMIODARONE 200 MG TAB PO ×2 (14:05→21:05)
[2017-11-26] MEDS: DILTIAZEM 25 MG INJ IV (17:51)
[2017-11-26] MEDS: TAMSULOSIN (SR) 0.4 MG CAP PO (21:05)
[2017-11-27] MEDS: ACCU-CHEK XX (02:00)
[2017-11-27] MEDS: PANTOPRAZOLE (EC) 40 MG TAB PO (06:13)
[2017-11-27] MEDS: INSULIN ASPART [NOVOLOG] 3 ML PEN SC ×4 (08:00→20:41)
[2017-11-27] MEDS: MULTIVIT/CA CARB/B CMPLX/FA TAB PO (08:10)
[2017-11-27] MEDS: AMIODARONE 200 MG TAB PO ×2 (08:10→20:40)
[2017-11-27] MEDS: LOSARTAN 25 MG TAB PO ×2 (08:11→20:41)
[2017-11-27 09:03] LABS: ADD MAN DIFF? NO
[2017-11-27 09:07] LABS: WHITE BLOOD COUNT 8.4 10^3/ul (4.8-10.8)
[2017-11-27 09:07] LABS: ABNORMAL IP MESSAGE 1; BASOPHIL # 0.1 10^3/ul (0.0-0.1); BASOPHILS % 0.9 % (0.0-2.0); EOSINOPHILS # 0.6 10^3/ul (0.0-0.5); EOSINOPHILS % 6.6 % (0.0-7.0); HEMATOCRIT 22.7 % (42.0-52.0); HEMOGLOBIN 7.1 g/dl (14.0-18.0); LYMPHOCYTES # 1.2 10^3/ul (0.8-2.9); LYMPHOCYTES % 13.8 % (15.0-51.0); MEAN CORPUSCULAR HEMOGLOBIN 30.3 pg (29.0-33.0); MEAN CORPUSCULAR HGB CONC 31.3 g/dl (32.0-37.0); MEAN PLATELET VOLUME 10.4 fl (7.4-10.4); MONOCYTE # 0.7 10^3/ul (0.3-0.9); MONOCYTES % 7.9 % (0.0-11.0); NEUTROPHIL # 5.9 10^3/ul (1.6-7.5); NEUTROPHILS % 70.4 % (39.0-77.0); PLATELET COUNT 81 10^3/UL (140-415); POSITIVE DIFF @See below; RED BLOOD COUNT 2.34 10^6/ul (4.70-6.10); RED CELL DISTRIBUTION WIDTH 17.2 % (11.5-14.5)
[2017-11-27 09:46] LABS: ANION GAP 13 (8-16); BLOOD UREA NITROGEN 32 mg/dl (7-20); CALCIUM 8.2 mg/dl (8.4-10.2); CARBON DIOXIDE 28 mmol/L (21-31); CHLORIDE 102 mmol/L (97-110); CREATININE 4.03 mg/dl (0.61-1.24); GLUCOSE 108 mg/dl (70-220); POTASSIUM 4.4 mmol/L (3.5-5.1); SODIUM 139 mmol/L (135-144)
[2017-11-27 16:55] LABS: IMMEDIATE SPIN CROSSMATCH 1 8
[2017-11-27] MEDS: EPOETIN 10000 UNITS/1 ML INJ (ESRD) SC (18:48)
[2017-11-27] MEDS: TAMSULOSIN (SR) 0.4 MG CAP PO (20:38)
[2017-11-27 22:59] LABS: ADD MAN DIFF? NO
[2017-11-27 23:01] LABS: WHITE BLOOD COUNT 8.7 10^3/ul (4.8-10.8)
[2017-11-27 23:01] LABS: ABNORMAL IP MESSAGE 1; BASOPHIL # 0.1 10^3/ul (0.0-0.1); BASOPHILS % 0.8 % (0.0-2.0); EOSINOPHILS # 0.6 10^3/ul (0.0-0.5); EOSINOPHILS % 6.6 % (0.0-7.0); HEMATOCRIT 25.6 % (42.0-52.0); HEMOGLOBIN 8.1 g/dl (14.0-18.0); LYMPHOCYTES # 0.9 10^3/ul (0.8-2.9); LYMPHOCYTES % 10.8 % (15.0-51.0); MEAN CORPUSCULAR HEMOGLOBIN 30.5 pg (29.0-33.0); MEAN CORPUSCULAR HGB CONC 31.6 g/dl (32.0-37.0); MEAN CORPUSCULAR VOLUME 96.2 fl (82.0-101.0); MEAN PLATELET VOLUME 10.4 fl (7.4-10.4); MONOCYTE # 0.6 10^3/ul (0.3-0.9); MONOCYTES % 7.3 % (0.0-11.0); NEUTROPHIL # 6.4 10^3/ul (1.6-7.5); NEUTROPHILS % 74.3 % (39.0-77.0); PLATELET COUNT 75 10^3/UL (140-415); POSITIVE DIFF @See below; RED BLOOD COUNT 2.66 10^6/ul (4.70-6.10); RED CELL DISTRIBUTION WIDTH 16.9 % (11.5-14.5)
[2017-11-28] MEDS: ACCU-CHEK XX (01:31)
[2017-11-28] MEDS: ACETAMINOPHEN 650MG/20.3ML CUP GTB (03:40)
[2017-11-28] MEDS: PANTOPRAZOLE (EC) 40 MG TAB PO (06:14)
[2017-11-28 06:25] LABS: ADD MAN DIFF? NO
[2017-11-28 06:34] LABS: WHITE BLOOD COUNT 8.9 10^3/ul (4.8-10.8)
[2017-11-28 06:34] LABS: ABNORMAL IP MESSAGE 1; BASOPHIL # 0.1 10^3/ul (0.0-0.1); BASOPHILS % 0.6 % (0.0-2.0); EOSINOPHILS # 0.7 10^3/ul (0.0-0.5); HEMATOCRIT 23.3 % (42.0-52.0); HEMOGLOBIN 7.4 g/dl (14.0-18.0); LYMPHOCYTES # 1.1 10^3/ul (0.8-2.9); LYMPHOCYTES % 12.6 % (15.0-51.0); MEAN CORPUSCULAR HEMOGLOBIN 30.5 pg (29.0-33.0); MEAN CORPUSCULAR HGB CONC 31.8 g/dl (32.0-37.0); MEAN CORPUSCULAR VOLUME 95.9 fl (82.0-101.0); MEAN PLATELET VOLUME 10.3 fl (7.4-10.4); MONOCYTE # 0.7 10^3/ul (0.3-0.9); MONOCYTES % 7.6 % (0.0-11.0); NEUTROPHIL # 6.3 10^3/ul (1.6-7.5); NEUTROPHILS % 70.9 % (39.0-77.0); PLATELET COUNT 76 10^3/UL (140-415); POSITIVE DIFF @See below; RED BLOOD COUNT 2.43 10^6/ul (4.70-6.10); RED CELL DISTRIBUTION WIDTH 17.2 % (11.5-14.5)
[2017-11-28 07:03] LABS: ANION GAP 12 (8-16); BLOOD UREA NITROGEN 51 mg/dl (7-20); CARBON DIOXIDE 27 mmol/L (21-31); CHLORIDE 104 mmol/L (97-110); GLUCOSE 95 mg/dl (70-220); MAGNESIUM 2.1 mg/dl (1.7-2.5); PHOSPHORUS 3.7 mg/dl (2.5-4.9); POTASSIUM 5.1 mmol/L (3.5-5.1); SODIUM 138 mmol/L (135-144)
[2017-11-28] MEDS: INSULIN ASPART [NOVOLOG] 3 ML PEN SC ×4 (08:00→21:00)
[2017-11-28] MEDS: MULTIVIT/CA CARB/B CMPLX/FA TAB PO (14:00)
[2017-11-28] MEDS: LOSARTAN 25 MG TAB PO ×2 (14:01→23:10)
[2017-11-28] MEDS: AMIODARONE 200 MG TAB PO ×2 (14:02→23:11)
[2017-11-28] MEDS: TAMSULOSIN (SR) 0.4 MG CAP PO (23:09)
[2017-11-29] MEDS: IBUPROFEN 200 MG TAB PO (01:49)
[2017-11-29] MEDS: ACCU-CHEK XX (02:00)
[2017-11-29] MEDS: INSULIN ASPART [NOVOLOG] 3 ML PEN SC ×4 (08:00→21:00)
[2017-11-29 08:32] LABS: ADD MAN DIFF? NO
[2017-11-29 08:35] LABS: WHITE BLOOD COUNT 8.7 10^3/ul (4.8-10.8)
[2017-11-29 08:35] LABS: ABNORMAL IP MESSAGE 1; BASOPHIL # 0.1 10^3/ul (0.0-0.1); BASOPHILS % 0.7 % (0.0-2.0); EOSINOPHILS # 0.7 10^3/ul (0.0-0.5); EOSINOPHILS % 7.6 % (0.0-7.0); HEMOGLOBIN 8.1 g/dl (14.0-18.0); LYMPHOCYTES # 0.9 10^3/ul (0.8-2.9); LYMPHOCYTES % 10.8 % (15.0-51.0); MEAN CORPUSCULAR HEMOGLOBIN 30.2 pg (29.0-33.0); MEAN CORPUSCULAR HGB CONC 32.4 g/dl (32.0-37.0); MEAN CORPUSCULAR VOLUME 93.3 fl (82.0-101.0); MEAN PLATELET VOLUME 10.3 fl (7.4-10.4); MONOCYTE # 0.7 10^3/ul (0.3-0.9); MONOCYTES % 7.6 % (0.0-11.0); NEUTROPHIL # 6.4 10^3/ul (1.6-7.5); PLATELET COUNT 63 10^3/UL (140-415); POSITIVE DIFF @See below; RED BLOOD COUNT 2.68 10^6/ul (4.70-6.10); RED CELL DISTRIBUTION WIDTH 17.3 % (11.5-14.5)
[2017-11-29] MEDS: AMIODARONE 200 MG TAB PO ×2 (08:52→21:50)
[2017-11-29] MEDS: LOSARTAN 25 MG TAB PO ×2 (08:53→21:51)
[2017-11-29] MEDS: PANTOPRAZOLE (EC) 40 MG TAB PO (08:53)
[2017-11-29] MEDS: MULTIVIT/CA CARB/B CMPLX/FA TAB PO (08:53)
[2017-11-29 08:55] LABS: BLOOD UREA NITROGEN 36 mg/dl (7-20); CALCIUM 7.5 mg/dl (8.4-10.2); CARBON DIOXIDE 27 mmol/L (21-31); CHLORIDE 105 mmol/L (97-110); CREATININE 3.79 mg/dl (0.61-1.24); GLUCOSE 98 mg/dl (70-220); POTASSIUM 4.4 mmol/L (3.5-5.1); SODIUM 140 mmol/L (135-144)
[2017-11-29] MEDS: EPOETIN 10000 UNITS/1 ML INJ (ESRD) SC (18:09)
[2017-11-29] MEDS: TAMSULOSIN (SR) 0.4 MG CAP PO (21:50)
[2017-11-29] MEDS: DIPHENHYDRAMINE 50 MG INJ IV (22:23)
[2017-11-30] MEDS: ACCU-CHEK XX (02:00)
[2017-11-30] MEDS: PANTOPRAZOLE (EC) 40 MG TAB PO ×2 (06:02→10:09)
[2017-11-30 06:20] LABS: ADD MAN DIFF? NO
[2017-11-30 06:22] LABS: ABNORMAL IP MESSAGE 1; BASOPHIL # 0.1 10^3/ul (0.0-0.1); BASOPHILS % 1.1 % (0.0-2.0); EOSINOPHILS # 0.8 10^3/ul (0.0-0.5); HEMATOCRIT 22.8 % (42.0-52.0); HEMOGLOBIN 7.3 g/dl (14.0-18.0); LYMPHOCYTES % 11.9 % (15.0-51.0); MEAN CORPUSCULAR HEMOGLOBIN 30.4 pg (29.0-33.0); MEAN PLATELET VOLUME 10.1 fl (7.4-10.4); MONOCYTE # 0.6 10^3/ul (0.3-0.9); MONOCYTES % 7.7 % (0.0-11.0); NEUTROPHIL # 5.5 10^3/ul (1.6-7.5); NEUTROPHILS % 68.9 % (39.0-77.0); PLATELET COUNT 67 10^3/UL (140-415); POSITIVE DIFF @See below; RED CELL DISTRIBUTION WIDTH 17.9 % (11.5-14.5)
[2017-11-30 06:57] LABS: BLOOD UREA NITROGEN 52 mg/dl (7-20); CALCIUM 8.2 mg/dl (8.4-10.2); CARBON DIOXIDE 27 mmol/L (21-31); CHLORIDE 102 mmol/L (97-110); CREATININE 5.19 mg/dl (0.61-1.24); GLUCOSE 93 mg/dl (70-220); MAGNESIUM 2.1 mg/dl (1.7-2.5); PHOSPHORUS 4.5 mg/dl (2.5-4.9); POTASSIUM 4.6 mmol/L (3.5-5.1); SODIUM 139 mmol/L (135-144)
[2017-11-30] MEDS: INSULIN ASPART [NOVOLOG] 3 ML PEN SC ×4 (08:00→21:00)
[2017-11-30 08:26] LABS: ANION GAP 8 (8-16)
[2017-11-30] MEDS: LOSARTAN 25 MG TAB PO ×2 (09:00→21:45)
[2017-11-30 09:09] LABS: ANION GAP 10 (5-13)
[2017-11-30] MEDS ORDERED: ALBUMIN HUMAN 25% 100 ML IV (09:30)
[2017-11-30] MEDS: MULTIVIT/CA CARB/B CMPLX/FA TAB PO (10:09)
[2017-11-30] MEDS: AMIODARONE 200 MG TAB PO ×2 (10:14→21:46)
[2017-11-30] MEDS: HEPARIN 1000 UNITS/ML 10 ML INJ CATHETER (11:51)
[2017-11-30] MEDS: TAMSULOSIN (SR) 0.4 MG CAP PO (21:45)
[2017-11-30] MEDS: DIPHENHYDRAMINE 25 MG CAP PO (22:27)
[2017-12-01] MEDS: ACCU-CHEK XX (02:00)
[2017-12-01 06:13] LABS: ADD MAN DIFF? NO
[2017-12-01 06:18] LABS: WHITE BLOOD COUNT 9.4 10^3/ul (4.8-10.8)
[2017-12-01 06:18] LABS: ABNORMAL IP MESSAGE 1; BASOPHIL # 0.1 10^3/ul (0.0-0.1); BASOPHILS % 1.1 % (0.0-2.0); EOSINOPHILS # 0.6 10^3/ul (0.0-0.5); EOSINOPHILS % 6.5 % (0.0-7.0); HEMATOCRIT 25.2 % (42.0-52.0); HEMOGLOBIN 8.3 g/dl (14.0-18.0); LYMPHOCYTES % 10.1 % (15.0-51.0); MEAN CORPUSCULAR HEMOGLOBIN 30.9 pg (29.0-33.0); MEAN CORPUSCULAR HGB CONC 32.9 g/dl (32.0-37.0); MEAN CORPUSCULAR VOLUME 93.7 fl (82.0-101.0); MEAN PLATELET VOLUME 10.8 fl (7.4-10.4); MONOCYTE # 0.8 10^3/ul (0.3-0.9); MONOCYTES % 8.8 % (0.0-11.0); NEUTROPHIL # 6.9 10^3/ul (1.6-7.5); NEUTROPHILS % 73.2 % (39.0-77.0); PLATELET COUNT 60 10^3/UL (140-415); POSITIVE DIFF @See below; RED BLOOD COUNT 2.69 10^6/ul (4.70-6.10); RED CELL DISTRIBUTION WIDTH 17.5 % (11.5-14.5)
[2017-12-01 06:51] LABS: ANION GAP 7 (5-13)
[2017-12-01 06:53] LABS: BLOOD UREA NITROGEN 32 mg/dl (7-20); CALCIUM 8.2 mg/dl (8.4-10.2); CARBON DIOXIDE 27 mmol/L (21-31); CHLORIDE 103 mmol/L (97-110); CREATININE 3.67 mg/dl (0.61-1.24); GLUCOSE 95 mg/dl (70-220); MAGNESIUM 1.9 mg/dl (1.7-2.5); PHOSPHORUS 3.4 mg/dl (2.5-4.9); POTASSIUM 4.5 mmol/L (3.5-5.1); SODIUM 137 mmol/L (135-144)
[2017-12-01] MEDS ORDERED: ETOMIDATE 20 MG INJ (07:00)
[2017-12-01] MEDS: INSULIN ASPART [NOVOLOG] 3 ML PEN SC ×3 (08:00→18:00)
[2017-12-01] MEDS: MULTIVIT/CA CARB/B CMPLX/FA TAB PO (08:42)
[2017-12-01] MEDS: LOSARTAN 25 MG TAB PO ×2 (08:42→21:00)
[2017-12-01] MEDS: AMIODARONE 200 MG TAB PO ×2 (08:42→21:00)
[2017-12-01] MEDS ORDERED: ROPIVACAINE 0.5 % 30 ML VIAL ×2 (15:24→19:53)
[2017-12-01] MEDS ORDERED: PROPOFOL 20 ML (15:24)
[2017-12-01] MEDS ORDERED: MIDAZOLAM 1 MG/ML 2 ML INJ (15:24)
[2017-12-01] MEDS ORDERED: ROCURONIUM 50 MG INJ ×2 (15:24→18:33)
[2017-12-01] MEDS ORDERED: CEFAZOLIN 1 GM INJ ×2 (15:24→20:03)
[2017-12-01] MEDS ORDERED: metroNIDAZOLE 500 MG/NS (PMX) 100 ML IVPB (15:25)
[2017-12-01] MEDS ORDERED: LIDOCAINE 2% (SDV) 5 ML INJ (16:47)
[2017-12-01] MEDS: EPOETIN 10000 UNITS/1 ML INJ (ESRD) SC (17:00)
[2017-12-01] MEDS ORDERED: PHENYLephrine (100 MCG/ML) 5ML SYG (17:30)
[2017-12-01] MEDS: BUPIVACAINE 0.25% (MPF) 30 ML INJ (18:36)
[2017-12-01] MEDS: LIDOCAINE 1%/EPI 30 ML INJ (18:36)
[2017-12-01] MEDS ORDERED: hydrALAzine 20 MG INJ (18:45)
[2017-12-01] MEDS ORDERED: FUROSEMIDE 20 MG INJ (19:16)
[2017-12-01] MEDS ORDERED: ACETAMINOPHEN 1000MG/100ML IV 100 ML (20:09)
[2017-12-01] MEDS ORDERED: DEXAMETHASONE 4 MG/ML 1 ML INJ (20:09)
[2017-12-01] MEDS ORDERED: METOCLOPRAMIDE 10 MG INJ (20:09)
[2017-12-01] MEDS ORDERED: ONDANSETRON 4 MG INJ (20:09)
[2017-12-01] MEDS: TAMSULOSIN (SR) 0.4 MG CAP PO (21:00)
[2017-12-01] MEDS ORDERED: SUGAMMADEX SODIUM 200 MG/2 ML VIAL IV (21:43)
[2017-12-01] MEDS ORDERED: HEPARIN 1000 UNITS/ML 10 ML INJ (21:44)
[2017-12-01] MEDS ORDERED: ONDANSETRON 4 MG INJ IV (22:30)
[2017-12-01] MEDS ORDERED: MEPERIDINE 25 MG INJ IV (22:30)
[2017-12-01] MEDS ORDERED: ALBUMIN HUMAN 5% 250 ML IV (22:30)
[2017-12-01] MEDS ORDERED: FENTAnyl 50 MCG/ML VIAL IV ×3 (22:30)
[2017-12-01] MEDS ORDERED: DIPHENHYDRAMINE 50 MG INJ IV (22:30)
[2017-12-01] MEDS ORDERED: METOCLOPRAMIDE 10 MG INJ IV (22:30)
[2017-12-01] MEDS ORDERED: EPHEDrine SULFATE 50 MG/5 ML SYG IV (22:30)
[2017-12-01] MEDS ORDERED: HYDROmorphONE 0.5 MG/0.5 ML SYG IV ×3 (22:30)
[2017-12-01 22:42] LABS: ADD UMIC YES; UR ASCORBIC ACID NEGATIVE (NEGATIVE); UR BILIRUBIN (Dip) NEGATIVE (NEGATIVE); UR BLOOD (Dip) 2+ mg/dL (NEGATIVE); UR CLARITY TURBID (CLEAR); UR COLOR YELLOW (YELLOW); UR GLUCOSE (Dip) NEGATIVE (NEGATIVE); UR KETONES (Dip) NEGATIVE (NEGATIVE); UR LEUKOCYTE ESTERASE (Dip) 2+ Leu/ul (NEGATIVE); UR NITRITE (Dip) NEGATIVE (NEGATIVE); UR RBC 86 /HPF (0-5); UR SPECIFIC GRAVITY (Dip) 1.012 (1.003-1.030); UR TOTAL PROTEIN (Dip) 2+ mg/dl (NEGATIVE); UR UROBILINOGEN (Dip) NEGATIVE (NEGATIVE); UR WBC > 182 /HPF (0-5)
[2017-12-01] MEDS: hydrALAzine 20 MG INJ IV (22:52)
[2017-12-02] MEDS: HYDROmorphONE 0.5 MG/0.5 ML SYG IV ×7 (00:10→21:32)
[2017-12-02 00:30] LABS: IMMEDIATE SPIN CROSSMATCH 1 9
[2017-12-02] MEDS: INSULIN ASPART [NOVOLOG] 3 ML PEN SC ×5 (00:32→20:55)
[2017-12-02] MEDS: LABETALOL HCL 20MG INJ IV (00:44)
[2017-12-02] MEDS: metroNIDAZOLE 500 MG/NS (PMX) 100 ML IVPB ×3 (01:43→13:15)
[2017-12-02] MEDS: ACCU-CHEK XX (02:00)
[2017-12-02] MEDS: hydrALAzine 20 MG INJ IV ×2 (02:27→08:44)
[2017-12-02] MEDS: CEFAZOLIN 2 GM/50 ML (PMX) 50 ML IVPB ×3 (02:27→15:49)
[2017-12-02 03:07] LABS: TYPE AND SCREEN 1
[2017-12-02 05:52] LABS: ADD MAN DIFF? NO
[2017-12-02 05:55] LABS: WHITE BLOOD COUNT 12.7 10^3/ul (4.8-10.8)
[2017-12-02 05:55] LABS: ABNORMAL IP MESSAGE 1; BASOPHILS % 0.2 % (0.0-2.0); HEMATOCRIT 23.4 % (42.0-52.0); HEMOGLOBIN 7.6 g/dl (14.0-18.0); LYMPHOCYTES # 0.3 10^3/ul (0.8-2.9); MEAN CORPUSCULAR HEMOGLOBIN 29.9 pg (29.0-33.0); MEAN CORPUSCULAR HGB CONC 32.5 g/dl (32.0-37.0); MEAN CORPUSCULAR VOLUME 92.1 fl (82.0-101.0); MEAN PLATELET VOLUME 9.8 fl (7.4-10.4); MONOCYTE # 0.6 10^3/ul (0.3-0.9); MONOCYTES % 4.7 % (0.0-11.0); NEUTROPHIL # 11.8 10^3/ul (1.6-7.5); PLATELET COUNT 123 10^3/UL (140-415); POSITIVE DIFF @See below; RED BLOOD COUNT 2.54 10^6/ul (4.70-6.10); RED CELL DISTRIBUTION WIDTH 17.4 % (11.5-14.5)
[2017-12-02 05:56] LABS: NEUTROPHILS % 92.5 % (39.0-77.0)
[2017-12-02 06:23] LABS: ALANINE AMINOTRANSFERASE 31 IU/L (13-69); ALBUMIN/GLOBULIN RATIO 1.03; ALKALINE PHOSPHATASE 67 IU/L (42-121); ANION GAP 15 (5-13); ASPARTATE AMINO TRANSFERASE 23 IU/L (15-46); BILIRUBIN,INDIRECT 0.6 mg/dl (0-1.1); BILIRUBIN,TOTAL 0.6 mg/dl (0.2-1.3); BLOOD UREA NITROGEN 39 mg/dl (7-20); CALCIUM 8.2 mg/dl (8.4-10.2); CARBON DIOXIDE 24 mmol/L (21-31); CHLORIDE 104 mmol/L (97-110); CREATININE 4.75 mg/dl (0.61-1.24); GLUCOSE 132 mg/dl (70-220); POTASSIUM 4.5 mmol/L (3.5-5.1); SODIUM 143 mmol/L (135-144); TOTAL PROTEIN 5.9 g/dl (6.1-8.1)
[2017-12-02 06:24] LABS: MAGNESIUM 1.9 mg/dl (1.7-2.5)
[2017-12-02 07:36] LABS: ANISOCYTOSIS 1+ (0-0); BAND NEUTROPHILS #M 0.3 10^3/ul (0.0-0.6); BAND NEUTROPHILS % (M) 3 % (0-4); LYMPHOCYTES #M 0.3 10^3/ul (0.8-2.9); LYMPHOCYTES % (M) 3 % (15-51); MONOCYTE #M 0.2 10^3/ul (0.3-0.9); MONOCYTES % (M) 2 % (0-11); PLATELET ESTIMATE DECREASED; SEG NEUT #M 11.7 10^3/ul (1.6-7.5); SEGMENTED NEUTROPHILS (M) % 92 % (39-77); SMUDGE%M 73 % (0-0)
[2017-12-02] MEDS: ONDANSETRON 4 MG INJ IV (07:58)
[2017-12-02] MEDS: PANTOPRAZOLE (EC) 40 MG TAB PO (09:45)
[2017-12-02] MEDS: LOSARTAN 25 MG TAB PO ×2 (09:49→20:48)
[2017-12-02] MEDS: MULTIVIT/CA CARB/B CMPLX/FA TAB PO (09:49)
[2017-12-02] MEDS: AMIODARONE 200 MG TAB PO ×2 (09:50→20:47)
[2017-12-02] MEDS: HEPARIN 1000 UNITS/ML 10 ML INJ CATHETER (14:10)
[2017-12-02 14:20] LABS: HEMATOCRIT 20.9 % (42.0-52.0)
[2017-12-02] MEDS: CEFTRIAXONE 1 GM/50 ML (PMX) 50 ML IVPB (18:13)
[2017-12-02] MEDS: TAMSULOSIN (SR) 0.4 MG CAP PO (20:46)
[2017-12-02 21:40] LABS: IMMEDIATE SPIN CROSSMATCH 1
[2017-12-03] MEDS: HYDROCODONE/APAP (5/325) TAB PO ×2 (00:02→18:46)
[2017-12-03] MEDS: ACCU-CHEK XX (02:00)
[2017-12-03 05:11] LABS: ADD MAN DIFF? NO
[2017-12-03 05:15] LABS: ABNORMAL IP MESSAGE 1; BASOPHIL # 0.1 10^3/ul (0.0-0.1); BASOPHILS % 0.5 % (0.0-2.0); EOSINOPHILS # 0.1 10^3/ul (0.0-0.5); EOSINOPHILS % 1.1 % (0.0-7.0); HEMATOCRIT 27.5 % (42.0-52.0); HEMOGLOBIN 9.2 g/dl (14.0-18.0); LYMPHOCYTES # 0.5 10^3/ul (0.8-2.9); LYMPHOCYTES % 5.3 % (15.0-51.0); MEAN CORPUSCULAR HEMOGLOBIN 29.4 pg (29.0-33.0); MEAN CORPUSCULAR HGB CONC 33.5 g/dl (32.0-37.0); MEAN CORPUSCULAR VOLUME 87.9 fl (82.0-101.0); MONOCYTE # 0.5 10^3/ul (0.3-0.9); MONOCYTES % 5.3 % (0.0-11.0); NEUTROPHILS % 87.5 % (39.0-77.0); PLATELET COUNT 118 10^3/UL (140-415); POSITIVE DIFF @See below; RED BLOOD COUNT 3.13 10^6/ul (4.70-6.10); RED CELL DISTRIBUTION WIDTH 17.9 % (11.5-14.5)
[2017-12-03 05:15] LABS: WHITE BLOOD COUNT 9.1 10^3/ul (4.8-10.8)
[2017-12-03 06:28] LABS: ANION GAP 12 (5-13); BLOOD UREA NITROGEN 25 mg/dl (7-20); CALCIUM 8.1 mg/dl (8.4-10.2); CARBON DIOXIDE 25 mmol/L (21-31); CHLORIDE 103 mmol/L (97-110); CREATININE 3.01 mg/dl (0.61-1.24); GLUCOSE 91 mg/dl (70-220); MAGNESIUM 1.8 mg/dl (1.7-2.5); PHOSPHORUS 3.9 mg/dl (2.5-4.9); POTASSIUM 4.1 mmol/L (3.5-5.1); SODIUM 140 mmol/L (135-144)
[2017-12-03] MEDS: PANTOPRAZOLE (EC) 40 MG TAB PO (06:50)
[2017-12-03] MEDS: INSULIN ASPART [NOVOLOG] 3 ML PEN SC ×4 (07:35→21:00)
[2017-12-03] MEDS: HYDROmorphONE 0.5 MG/0.5 ML SYG IV ×3 (08:11→17:50)
[2017-12-03] MEDS: LOSARTAN 25 MG TAB PO ×2 (09:22→22:19)
[2017-12-03] MEDS: MULTIVIT/CA CARB/B CMPLX/FA TAB PO (09:22)
[2017-12-03] MEDS: AMIODARONE 200 MG TAB PO ×2 (09:23→22:18)
[2017-12-03] MEDS: CEFTRIAXONE 1 GM/50 ML (PMX) 50 ML IVPB (17:01)
[2017-12-03] MEDS: hydrALAzine 20 MG INJ IV (21:09)
[2017-12-03] MEDS: TAMSULOSIN (SR) 0.4 MG CAP PO (22:18)
[2017-12-03] MEDS: ACETAMINOPHEN 650MG/20.3ML CUP GTB (23:55)
[2017-12-04] MEDS: ACCU-CHEK XX (01:36)
[2017-12-04] MEDS: PANTOPRAZOLE (EC) 40 MG TAB PO (05:41)
[2017-12-04] MEDS: ONDANSETRON 4 MG INJ IV ×3 (05:41→23:15)
[2017-12-04 06:24] LABS: WHITE BLOOD COUNT 5.5 10^3/ul (4.8-10.8)
[2017-12-04 06:24] LABS: ABNORMAL IP MESSAGE 1; HEMATOCRIT 32.3 % (42.0-52.0); HEMOGLOBIN 10.4 g/dl (14.0-18.0); MEAN CORPUSCULAR HEMOGLOBIN 29.2 pg (29.0-33.0); MEAN CORPUSCULAR HGB CONC 32.2 g/dl (32.0-37.0); MEAN CORPUSCULAR VOLUME 90.7 fl (82.0-101.0); MEAN PLATELET VOLUME 9.9 fl (7.4-10.4); NUCLEATED RED BLOOD CELLS% 0.4 /100WBC (0.0-0.0); PLATELET COUNT 114 10^3/UL (140-415); POSITIVE DIFF @See below; RED BLOOD COUNT 3.56 10^6/ul (4.70-6.10); RED CELL DISTRIBUTION WIDTH 18.9 % (11.5-14.5)
[2017-12-04 06:32] LABS: ADD MAN DIFF? YES
[2017-12-04 06:42] LABS: ANION GAP 14 (5-13); BLOOD UREA NITROGEN 36 mg/dl (7-20); CALCIUM 8.6 mg/dl (8.4-10.2); CARBON DIOXIDE 26 mmol/L (21-31); CHLORIDE 100 mmol/L (97-110); CREATININE 4.75 mg/dl (0.61-1.24); GLUCOSE 120 mg/dl (70-220); MAGNESIUM 1.9 mg/dl (1.7-2.5); PHOSPHORUS 3.5 mg/dl (2.5-4.9); POTASSIUM 3.9 mmol/L (3.5-5.1); SODIUM 140 mmol/L (135-144)
[2017-12-04 06:43] LABS: INR 1.59; PARTIAL THROMBOPLASTIN TIME 44.8 Sec (23.0-35.0); PROTIME 19.3 Sec (11.9-14.9); PT RATIO 1.5
[2017-12-04] MEDS: HYDROmorphONE 0.5 MG/0.5 ML SYG IV ×2 (07:02→11:24)
[2017-12-04] MEDS: INSULIN ASPART [NOVOLOG] 3 ML PEN SC ×4 (07:55→20:34)
[2017-12-04] MEDS: LOSARTAN 25 MG TAB PO ×2 (08:03→20:30)
[2017-12-04] MEDS: MULTIVIT/CA CARB/B CMPLX/FA TAB PO (08:05)
[2017-12-04] MEDS: AMIODARONE 200 MG TAB PO (08:19)
[2017-12-04 08:54] LABS: ANISOCYTOSIS 1+ (0-0); BAND NEUTROPHILS #M 1.7 10^3/ul (0.0-0.6); BAND NEUTROPHILS % (M) 31 % (0-4); BASOPHIL #M 0.1 10^3/ul (0.0-0.0); BASOPHILS % (M) 2 % (0-2); BURR CELLS 3+ (0-0); EOSINOPHILS % (M) 2 % (0-7); LYMPHOCYTES #M 0.1 10^3/ul (0.8-2.9); LYMPHOCYTES % (M) 3 % (15-51); MONOCYTES % (M) 1 % (0-11); PLATELET ESTIMATE DECREASED; POIKILOCYTOSIS 2+ (0-0); POLYCHROMASIA 1+ (0-0); SEG NEUT #M 3.4 10^3/ul (1.6-7.5); SEGMENTED NEUTROPHILS (M) % 61 % (39-77); SMUDGE%M 2 % (0-0)
[2017-12-04] MEDS: HEPARIN 1000 UNITS/ML 10 ML INJ CATHETER (12:00)
[2017-12-04] MEDS: HYDROCODONE/APAP (5/325) TAB PO ×2 (12:31→20:29)
[2017-12-04] MEDS ORDERED: GENTAMICIN IV PER PHARMACY XX (14:30)
[2017-12-04] MEDS: FLUCONAZOLE 100 MG TAB PO (14:46)
[2017-12-04] MEDS: EPOETIN 10000 UNITS/1 ML INJ (ESRD) SC (16:12)
[2017-12-04] MEDS: GENTAMICIN 120 MG/NS (PMX) 100 ML IVPB (16:28)
[2017-12-04] MEDS ORDERED: GENTAMICIN 120 MG/NS (PMX) 100 ML IVPB (17:00)
[2017-12-04] MEDS ORDERED: AMIODARONE 900 MG in DEXTROSE 5% 482 ML IV (17:30)
[2017-12-04] MEDS: AMIODARONE 150MG/D5W BOLUS 100 ML IV (18:36)
[2017-12-04] MEDS: TAMSULOSIN (SR) 0.4 MG CAP PO (20:28)
[2017-12-05] MEDS: ACCU-CHEK XX (02:00)
[2017-12-05] MEDS: PANTOPRAZOLE (EC) 40 MG TAB PO (06:27)
[2017-12-05 06:43] LABS: ABNORMAL IP MESSAGE 1; HEMATOCRIT 33.5 % (42.0-52.0); HEMOGLOBIN 10.9 g/dl (14.0-18.0); MEAN CORPUSCULAR HEMOGLOBIN 29.5 pg (29.0-33.0); MEAN CORPUSCULAR HGB CONC 32.5 g/dl (32.0-37.0); MEAN CORPUSCULAR VOLUME 90.8 fl (82.0-101.0); MEAN PLATELET VOLUME 9.5 fl (7.4-10.4); PLATELET COUNT 101 10^3/UL (140-415); POSITIVE DIFF @See below; RED BLOOD COUNT 3.69 10^6/ul (4.70-6.10); RED CELL DISTRIBUTION WIDTH 19.1 % (11.5-14.5)
[2017-12-05 06:43] LABS: WHITE BLOOD COUNT 6.7 10^3/ul (4.8-10.8)
[2017-12-05 06:52] LABS: ADD MAN DIFF? YES
[2017-12-05 07:17] LABS: ANION GAP 14 (5-13); BLOOD UREA NITROGEN 31 mg/dl (7-20); CALCIUM 8.5 mg/dl (8.4-10.2); CARBON DIOXIDE 23 mmol/L (21-31); CHLORIDE 101 mmol/L (97-110); CREATININE 3.98 mg/dl (0.61-1.24); GLUCOSE 114 mg/dl (70-220); MAGNESIUM 1.9 mg/dl (1.7-2.5); PHOSPHORUS 3.5 mg/dl (2.5-4.9); POTASSIUM 4.3 mmol/L (3.5-5.1); SODIUM 138 mmol/L (135-144)
[2017-12-05] MEDS: INSULIN ASPART [NOVOLOG] 3 ML PEN SC ×4 (07:43→20:19)
[2017-12-05] MEDS: MULTIVIT/CA CARB/B CMPLX/FA TAB PO (08:44)
[2017-12-05] MEDS: LOSARTAN 25 MG TAB PO ×2 (08:45→20:17)
[2017-12-05] MEDS: FLUCONAZOLE 100 MG TAB PO (08:47)
[2017-12-05] MEDS: HYDROCODONE/APAP (5/325) TAB PO (08:58)
[2017-12-05] MEDS: ONDANSETRON 4 MG INJ IV (09:23)
[2017-12-05 09:24] LABS: ANISOCYTOSIS 1+ (0-0); BAND NEUTROPHILS #M 1.5 10^3/ul (0.0-0.6); BAND NEUTROPHILS % (M) 23 % (0-4); BURR CELLS 3+ (0-0); EOSINOPHILS % (M) 1 % (0-7); HYPOCHROMASIA 1+ (0-0); LYMPHOCYTES #M 0.1 10^3/ul (0.8-2.9); LYMPHOCYTES % (M) 2 % (15-51); MONOCYTE #M 0.2 10^3/ul (0.3-0.9); MONOCYTES % (M) 4 % (0-11); PLATELET ESTIMATE DECREASED; POIKILOCYTOSIS 3+ (0-0); SEG NEUT #M 4.8 10^3/ul (1.6-7.5); SEGMENTED NEUTROPHILS (M) % 70 % (39-77); SMUDGE%M 14 % (0-0)
[2017-12-05] MEDS ORDERED: IOHEXOL 14.3 MG(I)/ML (ADULT) BTL PO ×2 (11:00→15:30)
[2017-12-05] MEDS: DESMOPRESSIN 20 MCG in NS 50 ML IV (12:38)
[2017-12-05] MEDS: DEXTROSE 5%-0.45% NACL 1,000 ML IV (13:28)
[2017-12-05] MEDS ORDERED: DIATR MEGLU/DIATRIZOATE SODIUM 120 ML BTL PO (14:00)
[2017-12-05] MEDS ORDERED: DIATR MEGLU/DIATRIZOATE SODIUM 30 ML SOLUTION PO (14:00)
[2017-12-05] MEDS: SOD CHLORIDE 0.9% 100 ML (18:07)
[2017-12-05] MEDS: IODIXANOL LOCM 100 ML BTL (18:07)
[2017-12-05] MEDS: TAMSULOSIN (SR) 0.4 MG CAP PO (20:16)
[2017-12-05] MEDS: HYDROmorphONE 0.5 MG/0.5 ML SYG IV (23:47)
[2017-12-06] MEDS: ACCU-CHEK XX (02:00)
[2017-12-06] MEDS: INSULIN ASPART [NOVOLOG] 3 ML PEN SC ×4 (07:55→20:25)
[2017-12-06] MEDS: DEXTROSE 5%-0.45% NACL 1,000 ML IV (09:08)
[2017-12-06 09:48] LABS: ADD MAN DIFF? NO
[2017-12-06 09:55] LABS: ABNORMAL IP MESSAGE 1; BASOPHILS % 0.3 % (0.0-2.0); EOSINOPHILS # 0.3 10^3/ul (0.0-0.5); EOSINOPHILS % 4.3 % (0.0-7.0); HEMATOCRIT 31.5 % (42.0-52.0); HEMOGLOBIN 9.8 g/dl (14.0-18.0); LYMPHOCYTES # 0.3 10^3/ul (0.8-2.9); LYMPHOCYTES % 4.6 % (15.0-51.0); MEAN CORPUSCULAR HGB CONC 31.1 g/dl (32.0-37.0); MEAN CORPUSCULAR VOLUME 93.2 fl (82.0-101.0); MONOCYTE # 0.4 10^3/ul (0.3-0.9); MONOCYTES % 5.6 % (0.0-11.0); NEUTROPHIL # 5.3 10^3/ul (1.6-7.5); NEUTROPHILS % 84.7 % (39.0-77.0); PLATELET COUNT 87 10^3/UL (140-415); POSITIVE DIFF @See below; RED BLOOD COUNT 3.38 10^6/ul (4.70-6.10); RED CELL DISTRIBUTION WIDTH 18.3 % (11.5-14.5)
[2017-12-06 09:55] LABS: WHITE BLOOD COUNT 6.3 10^3/ul (4.8-10.8)
[2017-12-06 10:17] LABS: ANION GAP 15 (5-13); BLOOD UREA NITROGEN 43 mg/dl (7-20); CALCIUM 8.2 mg/dl (8.4-10.2); CARBON DIOXIDE 24 mmol/L (21-31); CHLORIDE 98 mmol/L (97-110); CREATININE 4.83 mg/dl (0.61-1.24); Estimated GFR 12 mL/min (>60); GLUCOSE 128 mg/dl (70-220); MAGNESIUM 1.9 mg/dl (1.7-2.5); PHOSPHORUS 3.7 mg/dl (2.5-4.9); POTASSIUM 4.1 mmol/L (3.5-5.1); SODIUM 137 mmol/L (135-144)
[2017-12-06] MEDS: HEPARIN 1000 UNITS/ML 10 ML INJ CATHETER (12:22)
[2017-12-06] MEDS: FLUCONAZOLE 100 MG TAB PO (12:45)
[2017-12-06] MEDS: PANTOPRAZOLE (EC) 40 MG TAB PO (12:45)
[2017-12-06] MEDS: MULTIVIT/CA CARB/B CMPLX/FA TAB PO (12:45)
[2017-12-06] MEDS: LOSARTAN 25 MG TAB PO ×2 (12:46→20:14)
[2017-12-06] MEDS: EPOETIN 10000 UNITS/1 ML INJ (ESRD) SC (16:00)
[2017-12-06] MEDS: GENTAMICIN 80 MG/NS (PMX) 50 ML IVPB (16:00)
[2017-12-06] MEDS: CASPOFUNGIN 70 MG in SOD CHLORIDE 0.9% 250 ML IVPB (17:41)
[2017-12-06] MEDS: TAMSULOSIN (SR) 0.4 MG CAP PO (20:13)
[2017-12-07] MEDS: ACCU-CHEK XX (02:00)
[2017-12-07 06:17] LABS: ADD MAN DIFF? NO
[2017-12-07 06:25] LABS: WHITE BLOOD COUNT 6.2 10^3/ul (4.8-10.8)
[2017-12-07 06:25] LABS: ABNORMAL IP MESSAGE 1; BASOPHILS % 0.3 % (0.0-2.0); EOSINOPHILS # 0.2 10^3/ul (0.0-0.5); EOSINOPHILS % 2.7 % (0.0-7.0); HEMATOCRIT 32.1 % (42.0-52.0); HEMOGLOBIN 10.1 g/dl (14.0-18.0); LYMPHOCYTES # 0.4 10^3/ul (0.8-2.9); LYMPHOCYTES % 6.3 % (15.0-51.0); MEAN CORPUSCULAR HEMOGLOBIN 29.3 pg (29.0-33.0); MEAN CORPUSCULAR HGB CONC 31.5 g/dl (32.0-37.0); MEAN PLATELET VOLUME 9.8 fl (7.4-10.4); MONOCYTE # 0.5 10^3/ul (0.3-0.9); MONOCYTES % 7.6 % (0.0-11.0); NEUTROPHIL # 5.1 10^3/ul (1.6-7.5); NEUTROPHILS % 82.6 % (39.0-77.0); PLATELET COUNT 85 10^3/UL (140-415); POSITIVE DIFF @See below; RED BLOOD COUNT 3.45 10^6/ul (4.70-6.10); RED CELL DISTRIBUTION WIDTH 18.2 % (11.5-14.5)
[2017-12-07 06:51] LABS: ANION GAP 15 (5-13); BLOOD UREA NITROGEN 27 mg/dl (7-20); CALCIUM 8.1 mg/dl (8.4-10.2); CARBON DIOXIDE 24 mmol/L (21-31); CHLORIDE 100 mmol/L (97-110); CREATININE 3.94 mg/dl (0.61-1.24); Estimated GFR 15 mL/min (>60); GLUCOSE 119 mg/dl (70-220); MAGNESIUM 1.9 mg/dl (1.7-2.5); PHOSPHORUS 2.9 mg/dl (2.5-4.9); POTASSIUM 3.7 mmol/L (3.5-5.1); SODIUM 139 mmol/L (135-144)
[2017-12-07] MEDS: INSULIN ASPART [NOVOLOG] 3 ML PEN SC ×4 (07:55→21:00)
[2017-12-07] MEDS: PANTOPRAZOLE (EC) 40 MG TAB PO (08:51)
[2017-12-07] MEDS: LOSARTAN 25 MG TAB PO ×2 (08:51→21:44)
[2017-12-07] MEDS: MULTIVIT/CA CARB/B CMPLX/FA TAB PO (08:51)
[2017-12-07 11:35] LABS: HEMATOCRIT 31.5 % (42.0-52.0)
[2017-12-07] MEDS: DEXTROSE 5%-0.45% NACL 1,000 ML IV (12:15)
[2017-12-07] MEDS: METOCLOPRAMIDE 10 MG INJ IV ×2 (16:28→21:45)
[2017-12-07] MEDS: CASPOFUNGIN 50 MG in SOD CHLORIDE 0.9% 250 ML IVPB (16:28)
[2017-12-07] MEDS: HYDROCODONE/APAP (5/325) TAB PO (16:28)
[2017-12-07] MEDS: ACETAMINOPHEN 650MG/20.3ML CUP GTB (21:43)
[2017-12-07] MEDS: TAMSULOSIN (SR) 0.4 MG CAP PO (21:45)
[2017-12-08] MEDS: ACCU-CHEK XX (02:00)
[2017-12-08 06:08] LABS: ADD MAN DIFF? NO
[2017-12-08] MEDS: PANTOPRAZOLE (EC) 40 MG TAB PO (06:17)
[2017-12-08] MEDS: METOCLOPRAMIDE 10 MG INJ IV ×3 (06:17→21:58)
[2017-12-08 06:19] LABS: ABNORMAL IP MESSAGE 1; BASOPHILS % 0.3 % (0.0-2.0); EOSINOPHILS # 0.3 10^3/ul (0.0-0.5); EOSINOPHILS % 3.6 % (0.0-7.0); HEMATOCRIT 31.8 % (42.0-52.0); HEMOGLOBIN 10.2 g/dl (14.0-18.0); LYMPHOCYTES # 0.4 10^3/ul (0.8-2.9); LYMPHOCYTES % 4.8 % (15.0-51.0); MEAN CORPUSCULAR HEMOGLOBIN 29.6 pg (29.0-33.0); MEAN CORPUSCULAR HGB CONC 32.1 g/dl (32.0-37.0); MEAN CORPUSCULAR VOLUME 92.2 fl (82.0-101.0); MEAN PLATELET VOLUME 10.2 fl (7.4-10.4); MONOCYTE # 0.5 10^3/ul (0.3-0.9); MONOCYTES % 6.2 % (0.0-11.0); NEUTROPHIL # 6.1 10^3/ul (1.6-7.5); NEUTROPHILS % 84.4 % (39.0-77.0); PLATELET COUNT 91 10^3/UL (140-415); POSITIVE DIFF @See below; RED BLOOD COUNT 3.45 10^6/ul (4.70-6.10); RED CELL DISTRIBUTION WIDTH 17.7 % (11.5-14.5)
[2017-12-08 06:19] LABS: WHITE BLOOD COUNT 7.2 10^3/ul (4.8-10.8)
[2017-12-08 06:43] LABS: ANION GAP 11 (5-13); BLOOD UREA NITROGEN 34 mg/dl (7-20); CALCIUM 8.1 mg/dl (8.4-10.2); CARBON DIOXIDE 25 mmol/L (21-31); CHLORIDE 102 mmol/L (97-110); CREATININE 5.24 mg/dl (0.61-1.24); Estimated GFR 11 mL/min (>60); GLUCOSE 112 mg/dl (70-220); MAGNESIUM 1.9 mg/dl (1.7-2.5); PHOSPHORUS 3.1 mg/dl (2.5-4.9); POTASSIUM 3.5 mmol/L (3.5-5.1); SODIUM 138 mmol/L (135-144)
[2017-12-08] MEDS: INSULIN ASPART [NOVOLOG] 3 ML PEN SC ×4 (07:55→21:00)
[2017-12-08] MEDS: LOSARTAN 25 MG TAB PO ×2 (08:11→21:58)
[2017-12-08] MEDS: MULTIVIT/CA CARB/B CMPLX/FA TAB PO (08:13)
[2017-12-08] MEDS: HYDROmorphONE 0.5 MG/0.5 ML SYG IV ×2 (08:14→11:01)
[2017-12-08] MEDS: ONDANSETRON 4 MG INJ IV (11:01)
[2017-12-08] MEDS: HEPARIN 1000 UNITS/ML 10 ML INJ CATHETER (11:55)
[2017-12-08] MEDS: DIATR MEGLU/DIATRIZOATE SODIUM 120 ML BTL ×2 (13:25)
[2017-12-08] MEDS: GENTAMICIN 80 MG/NS (PMX) 50 ML IVPB (16:56)
[2017-12-08] MEDS: DEXTROSE 5%-0.45% NACL 1,000 ML IV (16:56)
[2017-12-08] MEDS: CASPOFUNGIN 50 MG in SOD CHLORIDE 0.9% 250 ML IVPB (16:56)
[2017-12-08] MEDS: EPOETIN 10000 UNITS/1 ML INJ (ESRD) SC (16:57)
[2017-12-08] MEDS: TAMSULOSIN (SR) 0.4 MG CAP PO (21:59)
[2017-12-09] MEDS: ACCU-CHEK XX (02:00)
[2017-12-09] MEDS: HYDROCODONE/APAP (5/325) TAB PO ×2 (02:10→16:57)
[2017-12-09] MEDS: DIPHENHYDRAMINE 25 MG CAP PO (02:10)
[2017-12-09] MEDS: METOCLOPRAMIDE 10 MG INJ IV ×2 (06:30→13:43)
[2017-12-09] MEDS: PANTOPRAZOLE (EC) 40 MG TAB PO (06:30)
[2017-12-09 07:33] LABS: ADD MAN DIFF? NO
[2017-12-09 07:44] LABS: ABNORMAL IP MESSAGE 1; BASOPHIL # 0.1 10^3/ul (0.0-0.1); BASOPHILS % 0.6 % (0.0-2.0); EOSINOPHILS # 0.1 10^3/ul (0.0-0.5); EOSINOPHILS % 1.7 % (0.0-7.0); HEMOGLOBIN 10.8 g/dl (14.0-18.0); LYMPHOCYTES # 0.5 10^3/ul (0.8-2.9); LYMPHOCYTES % 6.1 % (15.0-51.0); MEAN CORPUSCULAR HEMOGLOBIN 29.1 pg (29.0-33.0); MEAN CORPUSCULAR HGB CONC 30.9 g/dl (32.0-37.0); MEAN CORPUSCULAR VOLUME 94.3 fl (82.0-101.0); MEAN PLATELET VOLUME 11.1 fl (7.4-10.4); MONOCYTE # 0.6 10^3/ul (0.3-0.9); MONOCYTES % 7.3 % (0.0-11.0); NEUTROPHIL # 6.9 10^3/ul (1.6-7.5); NEUTROPHILS % 83.5 % (39.0-77.0); PLATELET COUNT 94 10^3/UL (140-415); POSITIVE DIFF @See below; RED BLOOD COUNT 3.71 10^6/ul (4.70-6.10); RED CELL DISTRIBUTION WIDTH 18.3 % (11.5-14.5)
[2017-12-09 07:44] LABS: WHITE BLOOD COUNT 8.3 10^3/ul (4.8-10.8)
[2017-12-09] MEDS: INSULIN ASPART [NOVOLOG] 3 ML PEN SC (07:55)
[2017-12-09 07:58] LABS: ANION GAP 13 (5-13); BLOOD UREA NITROGEN 22 mg/dl (7-20); CALCIUM 8.1 mg/dl (8.4-10.2); CARBON DIOXIDE 24 mmol/L (21-31); CHLORIDE 109 mmol/L (97-110); CREATININE 3.97 mg/dl (0.61-1.24); Estimated GFR 15 mL/min (>60); GLUCOSE 91 mg/dl (70-220); PHOSPHORUS 3.3 mg/dl (2.5-4.9); POTASSIUM 3.7 mmol/L (3.5-5.1); SODIUM 146 mmol/L (135-144)
[2017-12-09] MEDS: LOSARTAN 25 MG TAB PO ×2 (09:27→22:36)
[2017-12-09] MEDS: MULTIVIT/CA CARB/B CMPLX/FA TAB PO (09:28)
[2017-12-09] MEDS: Insulin NOVOLOG SS MILD Algorithm (NPO/TPN/ENTERAL FEEDS) SC ×3 (12:02→21:00)
[2017-12-09] MEDS ORDERED: INSULIN ASPART [NOVOLOG] 3 ML PEN SC (13:00)
[2017-12-09] MEDS: DEXTROSE 5%-0.45% NACL 1,000 ML IV ×2 (13:48→21:03)
[2017-12-09] MEDS: CASPOFUNGIN 50 MG in SOD CHLORIDE 0.9% 250 ML IVPB (16:09)
[2017-12-09] MEDS: hydrALAzine 20 MG INJ IV (18:39)
[2017-12-09] MEDS: TAMSULOSIN (SR) 0.4 MG CAP PO (22:36)
[2017-12-09] MEDS: HYDROmorphONE 0.5 MG/0.5 ML SYG IV (22:38)
[2017-12-10] MEDS: ACCU-CHEK XX (01:07)
[2017-12-10] MEDS: Insulin NOVOLOG SS MILD Algorithm (NPO/TPN/ENTERAL FEEDS) SC ×6 (01:50→21:05)
[2017-12-10] MEDS: PANTOPRAZOLE (EC) 40 MG TAB PO (06:39)
[2017-12-10 07:01] LABS: ADD MAN DIFF? NO
[2017-12-10 07:10] LABS: WHITE BLOOD COUNT 9.7 10^3/ul (4.8-10.8)
[2017-12-10 07:10] LABS: ABNORMAL IP MESSAGE 1; BASOPHILS % 0.3 % (0.0-2.0); EOSINOPHILS # 0.1 10^3/ul (0.0-0.5); EOSINOPHILS % 1.3 % (0.0-7.0); HEMATOCRIT 39.2 % (42.0-52.0); HEMOGLOBIN 12.2 g/dl (14.0-18.0); LYMPHOCYTES # 0.4 10^3/ul (0.8-2.9); LYMPHOCYTES % 4.1 % (15.0-51.0); MEAN CORPUSCULAR HEMOGLOBIN 29.2 pg (29.0-33.0); MEAN CORPUSCULAR HGB CONC 31.1 g/dl (32.0-37.0); MEAN CORPUSCULAR VOLUME 93.8 fl (82.0-101.0); MEAN PLATELET VOLUME 10.3 fl (7.4-10.4); MONOCYTE # 0.5 10^3/ul (0.3-0.9); MONOCYTES % 5.3 % (0.0-11.0); NEUTROPHIL # 8.6 10^3/ul (1.6-7.5); NEUTROPHILS % 88.4 % (39.0-77.0); PLATELET COUNT 125 10^3/UL (140-415); POSITIVE DIFF @See below; RED BLOOD COUNT 4.18 10^6/ul (4.70-6.10); RED CELL DISTRIBUTION WIDTH 18.3 % (11.5-14.5)
[2017-12-10 07:50] LABS: ANION GAP 11 (5-13); BLOOD UREA NITROGEN 29 mg/dl (7-20); CALCIUM 8.2 mg/dl (8.4-10.2); CARBON DIOXIDE 26 mmol/L (21-31); CHLORIDE 104 mmol/L (97-110); Estimated GFR 11 mL/min (>60); GLUCOSE 170 mg/dl (70-220); PHOSPHORUS 3.1 mg/dl (2.5-4.9); POTASSIUM 3.7 mmol/L (3.5-5.1); SODIUM 141 mmol/L (135-144)
[2017-12-10] MEDS: LOSARTAN 25 MG TAB PO (09:00)
[2017-12-10] MEDS: MULTIVIT/CA CARB/B CMPLX/FA TAB PO (09:00)
[2017-12-10] MEDS: DILTIAZEM 60 MG TAB PO (09:09)
[2017-12-10] MEDS: HYDROmorphONE 0.5 MG/0.5 ML SYG IV (09:21)
[2017-12-10] MEDS: HEPARIN 1000 UNITS/ML 10 ML INJ CATHETER (14:43)
[2017-12-10] MEDS: CASPOFUNGIN 50 MG in SOD CHLORIDE 0.9% 250 ML IVPB (16:18)
[2017-12-10] MEDS: GENTAMICIN 80 MG/NS (PMX) 50 ML IVPB (17:16)
[2017-12-10] MEDS: LOSARTAN 50 MG TAB PO (20:24)
[2017-12-11] MEDS: Insulin NOVOLOG SS MILD Algorithm (NPO/TPN/ENTERAL FEEDS) SC ×6 (01:00→21:38)
[2017-12-11] MEDS: ACCU-CHEK XX (01:16)
[2017-12-11] MEDS: DEXTROSE 5%-0.45% NACL 1,000 ML IV (01:17)
[2017-12-11] MEDS: PANTOPRAZOLE (EC) 40 MG TAB PO (04:56)
[2017-12-11] MEDS: HYDROmorphONE 0.5 MG/0.5 ML SYG IV ×3 (04:56→22:34)
[2017-12-11] MEDS: MULTIVIT/CA CARB/B CMPLX/FA TAB PO (09:08)
[2017-12-11] MEDS: LOSARTAN 50 MG TAB PO ×2 (09:09→21:32)
[2017-12-11 15:15] LABS: INR 1.27; PROTIME 16.1 Sec (11.9-14.9); PT RATIO 1.3
[2017-12-12] MEDS: Insulin NOVOLOG SS MILD Algorithm (NPO/TPN/ENTERAL FEEDS) SC ×6 (01:00→21:00)
[2017-12-12] MEDS: ACCU-CHEK XX (02:00)
[2017-12-12] MEDS: PANTOPRAZOLE (EC) 40 MG TAB PO (06:20)
[2017-12-12 07:01] LABS: ADD MAN DIFF? NO
[2017-12-12 07:06] LABS: ABNORMAL IP MESSAGE 1; BASOPHILS % 0.2 % (0.0-2.0); EOSINOPHILS # 0.2 10^3/ul (0.0-0.5); EOSINOPHILS % 2.4 % (0.0-7.0); HEMATOCRIT 29.2 % (42.0-52.0); HEMOGLOBIN 9.3 g/dl (14.0-18.0); LYMPHOCYTES # 0.6 10^3/ul (0.8-2.9); MEAN CORPUSCULAR HEMOGLOBIN 29.4 pg (29.0-33.0); MEAN CORPUSCULAR HGB CONC 31.8 g/dl (32.0-37.0); MEAN CORPUSCULAR VOLUME 92.4 fl (82.0-101.0); MEAN PLATELET VOLUME 10.3 fl (7.4-10.4); MONOCYTE # 0.6 10^3/ul (0.3-0.9); MONOCYTES % 7.5 % (0.0-11.0); NEUTROPHIL # 6.9 10^3/ul (1.6-7.5); NEUTROPHILS % 82.2 % (39.0-77.0); PLATELET COUNT 103 10^3/UL (140-415); POSITIVE DIFF @See below; RED BLOOD COUNT 3.16 10^6/ul (4.70-6.10); RED CELL DISTRIBUTION WIDTH 17.7 % (11.5-14.5)
[2017-12-12 07:06] LABS: WHITE BLOOD COUNT 8.4 10^3/ul (4.8-10.8)
[2017-12-12 07:42] LABS: ANION GAP 11 (5-13); BLOOD UREA NITROGEN 32 mg/dl (7-20); CALCIUM 7.7 mg/dl (8.4-10.2); CARBON DIOXIDE 24 mmol/L (21-31); CHLORIDE 101 mmol/L (97-110); CREATININE 5.58 mg/dl (0.61-1.24); Estimated GFR 10 mL/min (>60); GLUCOSE 138 mg/dl (70-220); MAGNESIUM 1.7 mg/dl (1.7-2.5); PHOSPHORUS 3.2 mg/dl (2.5-4.9); POTASSIUM 3.9 mmol/L (3.5-5.1); SODIUM 136 mmol/L (135-144)
[2017-12-12] MEDS: MULTIVIT/CA CARB/B CMPLX/FA TAB PO (08:20)
[2017-12-12] MEDS: LOSARTAN 50 MG TAB PO ×2 (08:21→20:53)
[2017-12-12] MEDS: HYDROCODONE/APAP (5/325) TAB PO ×2 (12:48→20:53)
[2017-12-12] MEDS: HEPARIN 1000 UNITS/ML 10 ML INJ CATHETER (12:51)
[2017-12-12] MEDS: MAGNESIUM SULFATE 1 GM/D5W 100 ML IVPB (16:11)
[2017-12-12 17:58] LABS: HEMATOCRIT 30.7 % (42.0-52.0); HEMOGLOBIN 9.8 g/dl (14.0-18.0)
[2017-12-12] MEDS: DESMOPRESSIN 20 MCG in NS 50 ML IV (19:16)
[2017-12-13] MEDS: ACCU-CHEK XX ×2 (02:00)
[2017-12-13] MEDS: PANTOPRAZOLE (EC) 40 MG TAB PO (05:32)
[2017-12-13 07:12] LABS: ADD MAN DIFF? NO
[2017-12-13 07:13] LABS: WHITE BLOOD COUNT 6.8 10^3/ul (4.8-10.8)
[2017-12-13 07:13] LABS: BASOPHILS % 0.4 % (0.0-2.0); EOSINOPHILS # 0.2 10^3/ul (0.0-0.5); EOSINOPHILS % 2.7 % (0.0-7.0); HEMATOCRIT 29.5 % (42.0-52.0); HEMOGLOBIN 9.3 g/dl (14.0-18.0); LYMPHOCYTES # 0.6 10^3/ul (0.8-2.9); LYMPHOCYTES % 8.9 % (15.0-51.0); MEAN CORPUSCULAR HEMOGLOBIN 29.1 pg (29.0-33.0); MEAN CORPUSCULAR HGB CONC 31.5 g/dl (32.0-37.0); MEAN CORPUSCULAR VOLUME 92.2 fl (82.0-101.0); MEAN PLATELET VOLUME 10.6 fl (7.4-10.4); MONOCYTE # 0.7 10^3/ul (0.3-0.9); MONOCYTES % 9.6 % (0.0-11.0); NEUTROPHIL # 5.3 10^3/ul (1.6-7.5); PLATELET COUNT 106 10^3/UL (140-415)
[2017-12-13] MEDS ORDERED: INSULIN ASPART [NOVOLOG] 3 ML PEN SC (07:25)
[2017-12-13 07:43] LABS: ANION GAP 7 (5-13); BLOOD UREA NITROGEN 19 mg/dl (7-20); CALCIUM 7.5 mg/dl (8.4-10.2); CARBON DIOXIDE 27 mmol/L (21-31); CHLORIDE 100 mmol/L (97-110); CREATININE 3.52 mg/dl (0.61-1.24); Estimated GFR 17 mL/min (>60); GLUCOSE 111 mg/dl (70-220); MAGNESIUM 2.2 mg/dl (1.7-2.5); PHOSPHORUS 3.1 mg/dl (2.5-4.9); POTASSIUM 4.2 mmol/L (3.5-5.1); SODIUM 134 mmol/L (135-144)
[2017-12-13] MEDS: INSULIN ASPART [NOVOLOG] 3 ML PEN SC ×4 (07:55→21:00)
[2017-12-13] MEDS: LOSARTAN 50 MG TAB PO ×2 (08:21→21:03)
[2017-12-13] MEDS: MULTIVIT/CA CARB/B CMPLX/FA TAB PO (08:22)
[2017-12-13] MEDS: SOD CHLORIDE 0.9% 100 ML (09:13)
[2017-12-13] MEDS: IODIXANOL LOCM 100 ML BTL (09:15)
[2017-12-13] MEDS: HYDROCODONE/APAP (5/325) TAB PO ×2 (11:32→18:13)
[2017-12-13] MEDS: AMIODARONE 200 MG TAB PO ×2 (15:05→21:03)
[2017-12-14] MEDS: ONDANSETRON 4 MG INJ IV (00:10)
[2017-12-14] MEDS: HYDROCODONE/APAP (5/325) TAB PO ×3 (01:15→23:56)
[2017-12-14] MEDS: ACCU-CHEK XX ×2 (02:00)
[2017-12-14] MEDS: CALCIUM GLUCONATE 10% 2 GM in DEXTROSE 5% 100 ML IVPB (02:30)
[2017-12-14] MEDS: MAGNESIUM SULFATE 2 GM/50 ML 50 ML IVPB (04:24)
[2017-12-14] MEDS: PANTOPRAZOLE (EC) 40 MG TAB PO (05:06)
[2017-12-14] MEDS: ACETAMINOPHEN 650MG/20.3ML CUP GTB (05:07)
[2017-12-14 06:38] LABS: ANION GAP 10 (5-13); BLOOD UREA NITROGEN 30 mg/dl (7-20); CALCIUM 8.4 mg/dl (8.4-10.2); CARBON DIOXIDE 23 mmol/L (21-31); CHLORIDE 99 mmol/L (97-110); Estimated GFR 12 mL/min (>60); GLUCOSE 114 mg/dl (70-220); MAGNESIUM 2.1 mg/dl (1.7-2.5); PHOSPHORUS 4.5 mg/dl (2.5-4.9); POTASSIUM 5.2 mmol/L (3.5-5.1); SODIUM 132 mmol/L (135-144)
[2017-12-14] MEDS: INSULIN ASPART [NOVOLOG] 3 ML PEN SC ×4 (07:55→20:11)
[2017-12-14 08:12] LABS: ABNORMAL IP MESSAGE 1; HEMATOCRIT 28.3 % (42.0-52.0); HEMOGLOBIN 9.1 g/dl (14.0-18.0); MEAN CORPUSCULAR HEMOGLOBIN 29.8 pg (29.0-33.0); MEAN CORPUSCULAR HGB CONC 32.2 g/dl (32.0-37.0); MEAN CORPUSCULAR VOLUME 92.8 fl (82.0-101.0); MEAN PLATELET VOLUME 10.3 fl (7.4-10.4); PLATELET COUNT 126 10^3/UL (140-415); POSITIVE DIFF @See below; RED BLOOD COUNT 3.05 10^6/ul (4.70-6.10); RED CELL DISTRIBUTION WIDTH 17.7 % (11.5-14.5)
[2017-12-14 08:15] LABS: ADD MAN DIFF? YES
[2017-12-14] MEDS: LOSARTAN 50 MG TAB PO ×2 (09:00→20:10)
[2017-12-14 10:04] LABS: ANISOCYTOSIS 1+ (0-0); BAND NEUTROPHILS #M 0.8 10^3/ul (0.0-0.6); BAND NEUTROPHILS % (M) 7 % (0-4); BURR CELLS 2+ (0-0); LYMPHOCYTES #M 0.1 10^3/ul (0.8-2.9); LYMPHOCYTES % (M) 1 % (15-51); METAMYELOCYTES #M 0.1 10^3/ul (0.0-0.0); METAMYELOCYTES %M 1 % (0-0); MONOCYTE #M 0.1 10^3/ul (0.3-0.9); MONOCYTES % (M) 1 % (0-11); PLATELET ESTIMATE DECREASED; POIKILOCYTOSIS 2+ (0-0); POLYCHROMASIA 2+ (0-0); SEG NEUT #M 10.9 10^3/ul (1.6-7.5); SEGMENTED NEUTROPHILS (M) % 90 % (39-77); TARGET CELLS 2+ (0-0)
[2017-12-14] MEDS: HEPARIN 1000 UNITS/ML 10 ML INJ CATHETER (10:07)
[2017-12-14] MEDS: MULTIVIT/CA CARB/B CMPLX/FA TAB PO (11:46)
[2017-12-14] MEDS: AMIODARONE 200 MG TAB PO ×2 (11:47→20:11)
[2017-12-14] MEDS: HYDROmorphONE 0.5 MG/0.5 ML SYG IV (20:10)
[2017-12-14] MEDS: DOCUSATE SODIUM 100 MG CAP PO (23:56)
[2017-12-15] MEDS: ACCU-CHEK XX (01:01)
[2017-12-15] MEDS: PANTOPRAZOLE (EC) 40 MG TAB PO (06:17)
[2017-12-15] MEDS: HYDROCODONE/APAP (5/325) TAB PO ×2 (06:17→13:18)
[2017-12-15] MEDS: INSULIN ASPART [NOVOLOG] 3 ML PEN SC ×4 (07:55→20:11)
[2017-12-15 08:19] LABS: ADD MAN DIFF? NO
[2017-12-15 08:25] LABS: WHITE BLOOD COUNT 15.5 10^3/ul (4.8-10.8)
[2017-12-15 08:25] LABS: ABNORMAL IP MESSAGE 1; BASOPHILS % 0.3 % (0.0-2.0); EOSINOPHILS % 0.1 % (0.0-7.0); HEMATOCRIT 30.3 % (42.0-52.0); HEMOGLOBIN 9.5 g/dl (14.0-18.0); LYMPHOCYTES # 0.5 10^3/ul (0.8-2.9); MEAN CORPUSCULAR HEMOGLOBIN 29.3 pg (29.0-33.0); MEAN CORPUSCULAR HGB CONC 31.4 g/dl (32.0-37.0); MEAN CORPUSCULAR VOLUME 93.5 fl (82.0-101.0); MEAN PLATELET VOLUME 10.1 fl (7.4-10.4); MONOCYTE # 0.8 10^3/ul (0.3-0.9); MONOCYTES % 5.1 % (0.0-11.0); NEUTROPHIL # 14.1 10^3/ul (1.6-7.5); NEUTROPHILS % 90.9 % (39.0-77.0); PLATELET COUNT 142 10^3/UL (140-415); POSITIVE DIFF @See below; RED BLOOD COUNT 3.24 10^6/ul (4.70-6.10); RED CELL DISTRIBUTION WIDTH 17.9 % (11.5-14.5)
[2017-12-15] MEDS: LOSARTAN 50 MG TAB PO ×2 (08:39→20:09)
[2017-12-15] MEDS: MULTIVIT/CA CARB/B CMPLX/FA TAB PO (08:40)
[2017-12-15] MEDS: AMIODARONE 200 MG TAB PO ×2 (08:41→20:10)
[2017-12-15 08:54] LABS: ANION GAP 10 (5-13); BLOOD UREA NITROGEN 20 mg/dl (7-20); CALCIUM 7.8 mg/dl (8.4-10.2); CARBON DIOXIDE 24 mmol/L (21-31); CHLORIDE 104 mmol/L (97-110); CREATININE 3.36 mg/dl (0.61-1.24); Estimated GFR 18 mL/min (>60); GLUCOSE 85 mg/dl (70-220); MAGNESIUM 2.1 mg/dl (1.7-2.5); PHOSPHORUS 3.6 mg/dl (2.5-4.9); POTASSIUM 4.5 mmol/L (3.5-5.1); SODIUM 138 mmol/L (135-144)
[2017-12-15] MEDS: HYDROmorphONE 0.5 MG/0.5 ML SYG IV (09:05)
[2017-12-15] MEDS: LACTULOSE 30ML CUP PO (09:05)
[2017-12-15] MEDS: ONDANSETRON 4 MG INJ IV ×2 (09:05→14:09)
[2017-12-15] MEDS: MEROPENEM 500MG/50 ML (PMX) 50 ML IVPB (16:49)
[2017-12-15] MEDS: SOD CHLORIDE 0.9% 100 ML ×2 (17:14)
[2017-12-15] MEDS: METOCLOPRAMIDE 10 MG INJ IV ×2 (17:39→23:59)
[2017-12-15] MEDS: DEXTROSE 5%-0.45% NACL 1,000 ML IV (19:37)
[2017-12-15] MEDS: POLYETHYLENE GLYCOL 17 GM PACKET PO (20:11)
[2017-12-16] MEDS: ACCU-CHEK XX (02:00)
[2017-12-16] MEDS: PANTOPRAZOLE (EC) 40 MG TAB PO (06:28)
[2017-12-16] MEDS: METOCLOPRAMIDE 10 MG INJ IV ×3 (06:28→18:36)
[2017-12-16 06:52] LABS: ADD MAN DIFF? NO
[2017-12-16 06:54] LABS: WHITE BLOOD COUNT 13.1 10^3/ul (4.8-10.8)
[2017-12-16 06:54] LABS: ABNORMAL IP MESSAGE 1; BASOPHILS % 0.2 % (0.0-2.0); EOSINOPHILS % 0.3 % (0.0-7.0); HEMATOCRIT 29.3 % (42.0-52.0); HEMOGLOBIN 9.3 g/dl (14.0-18.0); LYMPHOCYTES # 0.4 10^3/ul (0.8-2.9); LYMPHOCYTES % 2.8 % (15.0-51.0); MEAN CORPUSCULAR HEMOGLOBIN 29.9 pg (29.0-33.0); MEAN CORPUSCULAR HGB CONC 31.7 g/dl (32.0-37.0); MEAN CORPUSCULAR VOLUME 94.2 fl (82.0-101.0); MEAN PLATELET VOLUME 9.8 fl (7.4-10.4); MONOCYTE # 0.8 10^3/ul (0.3-0.9); MONOCYTES % 5.8 % (0.0-11.0); NEUTROPHIL # 11.8 10^3/ul (1.6-7.5); NEUTROPHILS % 90.2 % (39.0-77.0); PLATELET COUNT 161 10^3/UL (140-415); POSITIVE DIFF @See below; RED BLOOD COUNT 3.11 10^6/ul (4.70-6.10); RED CELL DISTRIBUTION WIDTH 18.4 % (11.5-14.5)
[2017-12-16 07:10] LABS: ANION GAP 11 (5-13); BLOOD UREA NITROGEN 31 mg/dl (7-20); CALCIUM 7.8 mg/dl (8.4-10.2); CARBON DIOXIDE 26 mmol/L (21-31); CHLORIDE 100 mmol/L (97-110); CREATININE 4.83 mg/dl (0.61-1.24); Estimated GFR 12 mL/min (>60); GLUCOSE 101 mg/dl (70-220); MAGNESIUM 2.2 mg/dl (1.7-2.5); PHOSPHORUS 4.9 mg/dl (2.5-4.9); POTASSIUM 4.9 mmol/L (3.5-5.1); SODIUM 137 mmol/L (135-144)
[2017-12-16] MEDS: INSULIN ASPART [NOVOLOG] 3 ML PEN SC ×4 (07:55→20:35)
[2017-12-16] MEDS: AMIODARONE 200 MG TAB PO ×2 (09:00→20:34)
[2017-12-16] MEDS: MULTIVIT/CA CARB/B CMPLX/FA TAB PO (09:00)
[2017-12-16] MEDS: LOSARTAN 50 MG TAB PO ×2 (09:00→20:33)
[2017-12-16] MEDS: HEPARIN 1000 UNITS/ML 10 ML INJ CATHETER (16:11)
[2017-12-16] MEDS: MEROPENEM 500MG/50 ML (PMX) 50 ML IVPB (17:00)
[2017-12-17] MEDS: DEXTROSE 5%-0.45% NACL 1,000 ML IV (00:55)
[2017-12-17] MEDS: METOCLOPRAMIDE 10 MG INJ IV ×4 (00:55→18:40)
[2017-12-17] MEDS: ACCU-CHEK XX (01:06)
[2017-12-17 06:41] LABS: ADD MAN DIFF? NO
[2017-12-17 06:42] LABS: WHITE BLOOD COUNT 9.7 10^3/ul (4.8-10.8)
[2017-12-17 06:42] LABS: ABNORMAL IP MESSAGE 1; BASOPHILS % 0.2 % (0.0-2.0); EOSINOPHILS # 0.1 10^3/ul (0.0-0.5); EOSINOPHILS % 0.8 % (0.0-7.0); HEMATOCRIT 27.4 % (42.0-52.0); HEMOGLOBIN 8.6 g/dl (14.0-18.0); LYMPHOCYTES # 0.4 10^3/ul (0.8-2.9); LYMPHOCYTES % 4.5 % (15.0-51.0); MEAN CORPUSCULAR HEMOGLOBIN 29.9 pg (29.0-33.0); MEAN CORPUSCULAR HGB CONC 31.4 g/dl (32.0-37.0); MEAN CORPUSCULAR VOLUME 95.1 fl (82.0-101.0); MEAN PLATELET VOLUME 9.3 fl (7.4-10.4); MONOCYTE # 0.6 10^3/ul (0.3-0.9); MONOCYTES % 5.8 % (0.0-11.0); NEUTROPHIL # 8.5 10^3/ul (1.6-7.5); NEUTROPHILS % 88.1 % (39.0-77.0); PLATELET COUNT 160 10^3/UL (140-415); POSITIVE DIFF @See below; RED BLOOD COUNT 2.88 10^6/ul (4.70-6.10)
[2017-12-17 07:00] LABS: ANION GAP 8 (5-13); BLOOD UREA NITROGEN 18 mg/dl (7-20); CALCIUM 7.7 mg/dl (8.4-10.2); CARBON DIOXIDE 30 mmol/L (21-31); CHLORIDE 101 mmol/L (97-110); CREATININE 3.24 mg/dl (0.61-1.24); Estimated GFR 19 mL/min (>60); GLUCOSE 93 mg/dl (70-220); POTASSIUM 4.2 mmol/L (3.5-5.1); SODIUM 139 mmol/L (135-144)
[2017-12-17] MEDS: PANTOPRAZOLE (EC) 40 MG TAB PO (07:25)
[2017-12-17] MEDS: INSULIN ASPART [NOVOLOG] 3 ML PEN SC ×4 (07:55→20:38)
[2017-12-17] MEDS: AMIODARONE 200 MG TAB PO ×2 (08:32→20:17)
[2017-12-17] MEDS: MULTIVIT/CA CARB/B CMPLX/FA TAB PO (08:33)
[2017-12-17] MEDS: LOSARTAN 50 MG TAB PO ×2 (08:33→20:18)
[2017-12-17] MEDS: MEROPENEM 500MG/50 ML (PMX) 50 ML IVPB (17:47)
[2017-12-18] MEDS: METOCLOPRAMIDE 10 MG INJ IV ×4 (00:07→16:59)
[2017-12-18] MEDS: ACCU-CHEK XX (01:45)
[2017-12-18] MEDS: ACETAMINOPHEN 650MG/20.3ML CUP GTB (04:34)
[2017-12-18 06:17] LABS: ADD MAN DIFF? NO
[2017-12-18 06:25] LABS: WHITE BLOOD COUNT 11.8 10^3/ul (4.8-10.8)
[2017-12-18 06:25] LABS: ABNORMAL IP MESSAGE 1; BASOPHILS % 0.3 % (0.0-2.0); EOSINOPHILS % 0.2 % (0.0-7.0); HEMATOCRIT 26.8 % (42.0-52.0); HEMOGLOBIN 8.4 g/dl (14.0-18.0); LYMPHOCYTES # 0.5 10^3/ul (0.8-2.9); LYMPHOCYTES % 4.5 % (15.0-51.0); MEAN CORPUSCULAR HEMOGLOBIN 29.4 pg (29.0-33.0); MEAN CORPUSCULAR HGB CONC 31.3 g/dl (32.0-37.0); MEAN CORPUSCULAR VOLUME 93.7 fl (82.0-101.0); MEAN PLATELET VOLUME 9.5 fl (7.4-10.4); MONOCYTE # 0.8 10^3/ul (0.3-0.9); MONOCYTES % 6.4 % (0.0-11.0); NEUTROPHIL # 10.4 10^3/ul (1.6-7.5); NEUTROPHILS % 87.9 % (39.0-77.0); PLATELET COUNT 150 10^3/UL (140-415); POSITIVE DIFF @See below; RED BLOOD COUNT 2.86 10^6/ul (4.70-6.10); RED CELL DISTRIBUTION WIDTH 17.4 % (11.5-14.5)
[2017-12-18 06:59] LABS: ANION GAP 10 (5-13); BLOOD UREA NITROGEN 27 mg/dl (7-20); CALCIUM 7.6 mg/dl (8.4-10.2); CARBON DIOXIDE 26 mmol/L (21-31); CHLORIDE 100 mmol/L (97-110); CREATININE 4.41 mg/dl (0.61-1.24); Estimated GFR 13 mL/min (>60); GLUCOSE 103 mg/dl (70-220); MAGNESIUM 1.9 mg/dl (1.7-2.5); PHOSPHORUS 2.6 mg/dl (2.5-4.9); POTASSIUM 3.9 mmol/L (3.5-5.1); SODIUM 136 mmol/L (135-144)
[2017-12-18] MEDS: PANTOPRAZOLE (EC) 40 MG TAB PO (07:25)
[2017-12-18] MEDS: INSULIN ASPART [NOVOLOG] 3 ML PEN SC ×4 (07:55→20:59)
[2017-12-18] MEDS: LOSARTAN 50 MG TAB PO ×2 (08:14→20:54)
[2017-12-18] MEDS: AMIODARONE 200 MG TAB PO ×2 (08:14→20:54)
[2017-12-18] MEDS: MULTIVIT/CA CARB/B CMPLX/FA TAB PO (08:14)
[2017-12-18] MEDS ORDERED: ONDANSETRON 4 MG INJ IV (15:30)
[2017-12-18] MEDS ORDERED: FENTAnyl 50 MCG/ML VIAL IV (15:30)
[2017-12-18] MEDS: MEROPENEM 500MG/50 ML (PMX) 50 ML IVPB (16:33)
[2017-12-18] MEDS: DEXTROSE 5%-0.45% NACL 1,000 ML IV (20:53)
[2017-12-19] MEDS: ACCU-CHEK XX (02:00)
[2017-12-19] MEDS: HEPARIN 1000 UNITS/ML 10 ML INJ CATHETER (03:23)
[2017-12-19] MEDS: PANTOPRAZOLE (EC) 40 MG TAB PO ×2 (05:10→10:43)
[2017-12-19] MEDS: METOCLOPRAMIDE 10 MG INJ IV ×5 (05:10→23:39)
[2017-12-19] MEDS: INSULIN ASPART [NOVOLOG] 3 ML PEN SC ×4 (07:55→20:36)
[2017-12-19] MEDS: AMIODARONE 200 MG TAB PO ×3 (08:04→20:31)
[2017-12-19] MEDS: LOSARTAN 50 MG TAB PO ×3 (08:04→20:31)
[2017-12-19] MEDS: MULTIVIT/CA CARB/B CMPLX/FA TAB PO ×2 (08:05→10:43)
[2017-12-19 08:35] LABS: ADD MAN DIFF? NO
[2017-12-19 08:38] LABS: BASOPHIL # 0.1 10^3/ul (0.0-0.1); BASOPHILS % 0.5 % (0.0-2.0); EOSINOPHILS # 0.1 10^3/ul (0.0-0.5); EOSINOPHILS % 0.5 % (0.0-7.0); HEMATOCRIT 31.9 % (42.0-52.0); LYMPHOCYTES # 0.7 10^3/ul (0.8-2.9); LYMPHOCYTES % 6.4 % (15.0-51.0); MEAN CORPUSCULAR HEMOGLOBIN 29.3 pg (29.0-33.0); MEAN CORPUSCULAR HGB CONC 31.3 g/dl (32.0-37.0); MEAN CORPUSCULAR VOLUME 93.5 fl (82.0-101.0); MEAN PLATELET VOLUME 10.3 fl (7.4-10.4); MONOCYTE # 0.5 10^3/ul (0.3-0.9); MONOCYTES % 4.4 % (0.0-11.0); NEUTROPHILS % 87.7 % (39.0-77.0); PLATELET COUNT 123 10^3/UL (140-415); POSITIVE DIFF @See below; RED BLOOD COUNT 3.41 10^6/ul (4.70-6.10); RED CELL DISTRIBUTION WIDTH 17.4 % (11.5-14.5)
[2017-12-19 08:38] LABS: WHITE BLOOD COUNT 10.3 10^3/ul (4.8-10.8)
[2017-12-19 09:05] LABS: ANION GAP 9 (5-13); BLOOD UREA NITROGEN 15 mg/dl (7-20); CALCIUM 7.4 mg/dl (8.4-10.2); CARBON DIOXIDE 26 mmol/L (21-31); CHLORIDE 101 mmol/L (97-110); CREATININE 2.55 mg/dl (0.61-1.24); Estimated GFR 25 mL/min (>60); GLUCOSE 88 mg/dl (70-220); MAGNESIUM 1.9 mg/dl (1.7-2.5); PHOSPHORUS 2.7 mg/dl (2.5-4.9); POTASSIUM 4.1 mmol/L (3.5-5.1); SODIUM 136 mmol/L (135-144)
[2017-12-19] MEDS: DEXTROSE 5%-0.45% NACL 1,000 ML IV (13:27)
[2017-12-19] MEDS: MEROPENEM 500MG/50 ML (PMX) 50 ML IVPB (17:33)
[2017-12-19] MEDS: HYDROCODONE/APAP (5/325) TAB PO (23:10)
[2017-12-20] MEDS: ACCU-CHEK XX (02:00)
[2017-12-20] MEDS: DEXTROSE 5%-0.45% NACL 1,000 ML IV (04:37)
[2017-12-20] MEDS: METOCLOPRAMIDE 10 MG INJ IV ×3 (04:37→21:00)
[2017-12-20] MEDS: ACETAMINOPHEN 650MG/20.3ML CUP GTB (04:38)
[2017-12-20 06:15] LABS: ADD MAN DIFF? NO
[2017-12-20 06:17] LABS: BASOPHILS % 0.5 % (0.0-2.0); EOSINOPHILS # 0.1 10^3/ul (0.0-0.5); EOSINOPHILS % 0.9 % (0.0-7.0); HEMATOCRIT 31.9 % (42.0-52.0); LYMPHOCYTES # 0.9 10^3/ul (0.8-2.9); LYMPHOCYTES % 10.4 % (15.0-51.0); MEAN CORPUSCULAR HEMOGLOBIN 29.2 pg (29.0-33.0); MEAN CORPUSCULAR HGB CONC 31.3 g/dl (32.0-37.0); MEAN CORPUSCULAR VOLUME 93.3 fl (82.0-101.0); MEAN PLATELET VOLUME 9.9 fl (7.4-10.4); MONOCYTE # 0.5 10^3/ul (0.3-0.9); MONOCYTES % 6.5 % (0.0-11.0); NEUTROPHIL # 6.7 10^3/ul (1.6-7.5); NEUTROPHILS % 81.1 % (39.0-77.0); PLATELET COUNT 129 10^3/UL (140-415); RED BLOOD COUNT 3.42 10^6/ul (4.70-6.10)
[2017-12-20 06:17] LABS: WHITE BLOOD COUNT 8.2 10^3/ul (4.8-10.8)
[2017-12-20 06:56] LABS: ANION GAP 9 (5-13); BLOOD UREA NITROGEN 21 mg/dl (7-20); CALCIUM 7.1 mg/dl (8.4-10.2); CARBON DIOXIDE 25 mmol/L (21-31); CHLORIDE 101 mmol/L (97-110); CREATININE 3.47 mg/dl (0.61-1.24); Estimated GFR 18 mL/min (>60); GLUCOSE 126 mg/dl (70-220); MAGNESIUM 1.8 mg/dl (1.7-2.5); PHOSPHORUS 3.1 mg/dl (2.5-4.9); POTASSIUM 3.9 mmol/L (3.5-5.1); SODIUM 135 mmol/L (135-144)
[2017-12-20] MEDS: HYDROCODONE/APAP (5/325) TAB PO (07:53)
[2017-12-20] MEDS: INSULIN ASPART [NOVOLOG] 3 ML PEN SC ×4 (07:54→21:00)
[2017-12-20] MEDS: AMIODARONE 200 MG TAB PO ×2 (08:28→20:59)
[2017-12-20] MEDS: LOSARTAN 50 MG TAB PO ×2 (08:28→20:58)
[2017-12-20] MEDS: MULTIVIT/CA CARB/B CMPLX/FA TAB PO (08:28)
[2017-12-20] MEDS: PANTOPRAZOLE (EC) 40 MG TAB PO (08:29)
[2017-12-20] MEDS: FENTAnyl 50 MCG/ML VIAL (11:05)
[2017-12-20] MEDS: HEPARIN 1000 UNITS/ML 10 ML INJ CATHETER (19:30)
[2017-12-20] MEDS: MEROPENEM 500MG/50 ML (PMX) 50 ML IVPB (21:01)
[2017-12-21] MEDS: METOCLOPRAMIDE 10 MG INJ IV ×4 (01:00→17:09)
[2017-12-21] MEDS: ACCU-CHEK XX (01:02)
[2017-12-21] MEDS: PANTOPRAZOLE (EC) 40 MG TAB PO (06:40)
[2017-12-21] MEDS: INSULIN ASPART [NOVOLOG] 3 ML PEN SC ×4 (07:55→20:35)
[2017-12-21] MEDS: MULTIVIT/CA CARB/B CMPLX/FA TAB PO (08:54)
[2017-12-21] MEDS: LOSARTAN 50 MG TAB PO ×2 (08:54→20:30)
[2017-12-21] MEDS: AMIODARONE 200 MG TAB PO ×2 (08:54→20:30)
[2017-12-21] MEDS: HYDROCODONE/APAP (5/325) TAB PO ×2 (12:50→21:53)
[2017-12-21] MEDS: MEROPENEM 500MG/50 ML (PMX) 50 ML IVPB (17:08)
[2017-12-22] MEDS: METOCLOPRAMIDE 10 MG INJ IV ×4 (00:37→18:04)
[2017-12-22] MEDS: ACCU-CHEK XX (02:00)
[2017-12-22] MEDS: PANTOPRAZOLE (EC) 40 MG TAB PO (06:25)
[2017-12-22] MEDS: INSULIN ASPART [NOVOLOG] 3 ML PEN SC ×4 (07:55→21:27)
[2017-12-22 09:01] LABS: ADD MAN DIFF? NO
[2017-12-22 09:05] LABS: WHITE BLOOD COUNT 9.3 10^3/ul (4.8-10.8)
[2017-12-22 09:05] LABS: BASOPHIL # 0.1 10^3/ul (0.0-0.1); BASOPHILS % 0.6 % (0.0-2.0); EOSINOPHILS # 0.2 10^3/ul (0.0-0.5); EOSINOPHILS % 1.7 % (0.0-7.0); HEMOGLOBIN 10.5 g/dl (14.0-18.0); LYMPHOCYTES % 10.4 % (15.0-51.0); MEAN CORPUSCULAR HEMOGLOBIN 29.2 pg (29.0-33.0); MEAN CORPUSCULAR HGB CONC 31.8 g/dl (32.0-37.0); MEAN CORPUSCULAR VOLUME 91.7 fl (82.0-101.0); MEAN PLATELET VOLUME 10.1 fl (7.4-10.4); MONOCYTE # 0.7 10^3/ul (0.3-0.9); MONOCYTES % 7.1 % (0.0-11.0); NEUTROPHIL # 7.4 10^3/ul (1.6-7.5); NEUTROPHILS % 79.7 % (39.0-77.0); PLATELET COUNT 128 10^3/UL (140-415); RED CELL DISTRIBUTION WIDTH 16.7 % (11.5-14.5)
[2017-12-22 09:20] LABS: ANION GAP 8 (5-13); BLOOD UREA NITROGEN 23 mg/dl (7-20); CALCIUM 7.2 mg/dl (8.4-10.2); CARBON DIOXIDE 25 mmol/L (21-31); CHLORIDE 102 mmol/L (97-110); CREATININE 3.91 mg/dl (0.61-1.24); Estimated GFR 15 mL/min (>60); GLUCOSE 84 mg/dl (70-220); MAGNESIUM 1.9 mg/dl (1.7-2.5); PHOSPHORUS 3.8 mg/dl (2.5-4.9); POTASSIUM 3.9 mmol/L (3.5-5.1); SODIUM 135 mmol/L (135-144)
[2017-12-22] MEDS: HYDROCODONE/APAP (5/325) TAB PO (09:39)
[2017-12-22 09:51] LABS: HEPATITIS B SURFACE ANTIGEN NEGATIVE (NEGATIVE)
[2017-12-22] MEDS: HEPARIN 1000 UNITS/ML 10 ML INJ CATHETER (11:07)
[2017-12-22] MEDS: AMIODARONE 200 MG TAB PO ×2 (11:27→22:28)
[2017-12-22] MEDS: MULTIVIT/CA CARB/B CMPLX/FA TAB PO (11:27)
[2017-12-22] MEDS: LOSARTAN 50 MG TAB PO ×2 (11:28→22:27)
[2017-12-22] MEDS: MEROPENEM 500MG/50 ML (PMX) 50 ML IVPB (18:04)
[2017-12-23] MEDS: METOCLOPRAMIDE 10 MG INJ IV ×4 (01:21→17:39)
[2017-12-23] MEDS: ACCU-CHEK XX (02:00)
[2017-12-23] MEDS: PANTOPRAZOLE (EC) 40 MG TAB PO (06:27)
[2017-12-23 07:07] LABS: ADD MAN DIFF? NO
[2017-12-23 07:13] LABS: BASOPHIL # 0.1 10^3/ul (0.0-0.1); BASOPHILS % 1.3 % (0.0-2.0); EOSINOPHILS # 0.3 10^3/ul (0.0-0.5); EOSINOPHILS % 4.6 % (0.0-7.0); HEMATOCRIT 30.2 % (42.0-52.0); HEMOGLOBIN 9.6 g/dl (14.0-18.0); LYMPHOCYTES % 18.2 % (15.0-51.0); MEAN CORPUSCULAR HEMOGLOBIN 29.1 pg (29.0-33.0); MEAN CORPUSCULAR HGB CONC 31.8 g/dl (32.0-37.0); MEAN CORPUSCULAR VOLUME 91.5 fl (82.0-101.0); MONOCYTE # 0.6 10^3/ul (0.3-0.9); MONOCYTES % 10.4 % (0.0-11.0); NEUTROPHIL # 3.6 10^3/ul (1.6-7.5); NEUTROPHILS % 64.8 % (39.0-77.0); PLATELET COUNT 124 10^3/UL (140-415); RED CELL DISTRIBUTION WIDTH 16.8 % (11.5-14.5)
[2017-12-23 07:13] LABS: WHITE BLOOD COUNT 5.6 10^3/ul (4.8-10.8)
[2017-12-23 07:42] LABS: ANION GAP 8 (5-13); BLOOD UREA NITROGEN 18 mg/dl (7-20); CALCIUM 7.1 mg/dl (8.4-10.2); CARBON DIOXIDE 24 mmol/L (21-31); CHLORIDE 104 mmol/L (97-110); CREATININE 3.06 mg/dl (0.61-1.24); Estimated GFR 20 mL/min (>60); GLUCOSE 114 mg/dl (70-220); MAGNESIUM 1.9 mg/dl (1.7-2.5); PHOSPHORUS 3.9 mg/dl (2.5-4.9); POTASSIUM 3.8 mmol/L (3.5-5.1); SODIUM 136 mmol/L (135-144)
[2017-12-23] MEDS: INSULIN ASPART [NOVOLOG] 3 ML PEN SC ×4 (07:55→21:00)
[2017-12-23] MEDS: MULTIVIT/CA CARB/B CMPLX/FA TAB PO (08:33)
[2017-12-23] MEDS: AMIODARONE 200 MG TAB PO ×2 (08:33→21:06)
[2017-12-23] MEDS: LOSARTAN 50 MG TAB PO ×2 (08:34→21:00)
[2017-12-23] MEDS: MEROPENEM 500MG/50 ML (PMX) 50 ML IVPB (17:39)
[2017-12-23] MEDS: HYDROCODONE/APAP (5/325) TAB PO (23:48)
[2017-12-24] MEDS: METOCLOPRAMIDE 10 MG INJ IV ×4 (00:45→17:32)
[2017-12-24] MEDS: ACCU-CHEK XX (02:00)
[2017-12-24] MEDS: PANTOPRAZOLE (EC) 40 MG TAB PO (06:12)
[2017-12-24] MEDS: INSULIN ASPART [NOVOLOG] 3 ML PEN SC ×4 (07:55→21:00)
[2017-12-24] MEDS: LOSARTAN 50 MG TAB PO ×2 (08:17→21:15)
[2017-12-24] MEDS: MULTIVIT/CA CARB/B CMPLX/FA TAB PO (08:17)
[2017-12-24] MEDS: AMIODARONE 200 MG TAB PO ×2 (08:17→21:11)
[2017-12-24] MEDS: HEPARIN 1000 UNITS/ML 10 ML INJ CATHETER (17:27)
[2017-12-24] MEDS: MEROPENEM 500MG/50 ML (PMX) 50 ML IVPB (17:32)
[2017-12-25] MEDS: METOCLOPRAMIDE 10 MG INJ IV ×5 (00:24→23:54)
[2017-12-25] MEDS: ACCU-CHEK XX (02:00)
[2017-12-25] MEDS: PANTOPRAZOLE (EC) 40 MG TAB PO (06:43)
[2017-12-25] MEDS: INSULIN ASPART [NOVOLOG] 3 ML PEN SC ×4 (07:31→20:57)
[2017-12-25] MEDS: AMIODARONE 200 MG TAB PO ×2 (08:07→22:09)
[2017-12-25] MEDS: MULTIVIT/CA CARB/B CMPLX/FA TAB PO (08:07)
[2017-12-25] MEDS: LOSARTAN 50 MG TAB PO ×2 (08:07→20:56)
[2017-12-25] MEDS: MEROPENEM 500MG/50 ML (PMX) 50 ML IVPB (18:20)
[2017-12-25] MEDS: APIXABAN 5 MG TABLET PO (20:56)
[2017-12-26] MEDS: ACCU-CHEK XX (02:00)
[2017-12-26] MEDS: METOCLOPRAMIDE 10 MG INJ IV ×2 (05:33→13:35)
[2017-12-26] MEDS: PANTOPRAZOLE (EC) 40 MG TAB PO (05:33)
[2017-12-26 07:11] LABS: ADD MAN DIFF? NO
[2017-12-26 07:20] LABS: WHITE BLOOD COUNT 7.9 10^3/ul (4.8-10.8)
[2017-12-26 07:20] LABS: BASOPHIL # 0.1 10^3/ul (0.0-0.1); BASOPHILS % 1.3 % (0.0-2.0); EOSINOPHILS # 0.5 10^3/ul (0.0-0.5); EOSINOPHILS % 5.9 % (0.0-7.0); HEMATOCRIT 31.9 % (42.0-52.0); HEMOGLOBIN 10.1 g/dl (14.0-18.0); LYMPHOCYTES # 0.9 10^3/ul (0.8-2.9); LYMPHOCYTES % 11.5 % (15.0-51.0); MEAN CORPUSCULAR HEMOGLOBIN 29.5 pg (29.0-33.0); MEAN CORPUSCULAR HGB CONC 31.7 g/dl (32.0-37.0); MEAN CORPUSCULAR VOLUME 93.3 fl (82.0-101.0); MEAN PLATELET VOLUME 9.6 fl (7.4-10.4); MONOCYTE # 0.8 10^3/ul (0.3-0.9); MONOCYTES % 9.7 % (0.0-11.0); NEUTROPHIL # 5.6 10^3/ul (1.6-7.5); PLATELET COUNT 161 10^3/UL (140-415); RED BLOOD COUNT 3.42 10^6/ul (4.70-6.10); RED CELL DISTRIBUTION WIDTH 16.6 % (11.5-14.5)
[2017-12-26 07:39] LABS: ANION GAP 8 (5-13); BLOOD UREA NITROGEN 33 mg/dl (7-20); CALCIUM 7.1 mg/dl (8.4-10.2); CARBON DIOXIDE 26 mmol/L (21-31); CHLORIDE 103 mmol/L (97-110); CREATININE 4.28 mg/dl (0.61-1.24); Estimated GFR 14 mL/min (>60); GLUCOSE 83 mg/dl (70-220); MAGNESIUM 1.9 mg/dl (1.7-2.5); PHOSPHORUS 4.1 mg/dl (2.5-4.9); POTASSIUM 4.3 mmol/L (3.5-5.1); SODIUM 137 mmol/L (135-144)
[2017-12-26] MEDS: INSULIN ASPART [NOVOLOG] 3 ML PEN SC ×2 (08:00→12:00)
[2017-12-26] MEDS: MULTIVIT/CA CARB/B CMPLX/FA TAB PO (08:52)
[2017-12-26] MEDS: APIXABAN 5 MG TABLET PO (08:53)
[2017-12-26] MEDS: HEPARIN 1000 UNITS/ML 10 ML INJ CATHETER (11:29)
[2017-12-26] MEDS: LOSARTAN 50 MG TAB PO (13:06)
[2017-12-26] MEDS: AMIODARONE 200 MG TAB PO (13:08)
== END 2017-12-26 15:45 | DRG 329 ==
LOC: ICU 12-01 22:22 → TEL 12-03 14:35 → E/R 10:57 → 2NE 12-25 14:11 → 6WM 12:44
PROC: 0DBM8ZX Excision of Descending Colon, Via Natural or Artificial Opening Endoscopic, Diagnostic (ICD-10-PCS; 2017-11-24 12:30)
PROC: 0DBN8ZX Excision of Sigmoid Colon, Via Natural or Artificial Opening Endoscopic, Diagnostic (ICD-10-PCS; 2017-11-24 12:30)
PROC: 0DTNFZZ Resection of Sigmoid Colon, Via Natural or Artificial Opening With Percutaneous Endoscopic Assistance (ICD-10-PCS; principal; 2017-11-24 15:06)
PROC: 0DUE4KZ Supplement Large Intestine with Nonautologous Tissue Substitute, Percutaneous Endoscopic Approach (ICD-10-PCS; 2017-11-24 15:06)
PROC: 5A1D70Z Performance of Urinary Filtration, Intermittent, Less than 6 Hours Per Day (ICD-10-PCS; 2017-11-24 15:06)
PROC: 30233N1 Transfusion of Nonautologous Red Blood Cells into Peripheral Vein, Percutaneous Approach (ICD-10-PCS; 2017-11-24 15:06)
PROC: 0W9G30Z Drainage of Peritoneal Cavity with Drainage Device, Percutaneous Approach (ICD-10-PCS; 2017-11-24 15:06)
DX: C18.7 Malignant neoplasm of sigmoid colon (principal); N18.6 End stage renal disease; A41.9 Sepsis, unspecified organism; K65.1 Peritoneal abscess; K56.7 Ileus, unspecified; D62 Acute posthemorrhagic anemia; I42.9 Cardiomyopathy, unspecified; K92.1 Melena; N39.0 Urinary tract infection, site not specified; C77.2 Secondary and unspecified malignant neoplasm of intra-abdominal lymph nodes; I12.0 Hypertensive chronic kidney disease with stage 5 chronic kidney disease or end stage renal disease; Z99.2 Dependence on renal dialysis; E11.22 Type 2 diabetes mellitus with diabetic chronic kidney disease; J44.9 Chronic obstructive pulmonary disease, unspecified; E83.9 Disorder of mineral metabolism, unspecified; I25.10 Atherosclerotic heart disease of native coronary artery without angina pectoris; N40.0 Benign prostatic hyperplasia without lower urinary tract symptoms; E87.6 Hypokalemia; I48.0 Paroxysmal atrial fibrillation; K64.4 Residual hemorrhoidal skin tags; K57.30 Diverticulosis of large intestine without perforation or abscess without bleeding; D69.6 Thrombocytopenia, unspecified; B96.5 Pseudomonas (aeruginosa) (mallei) (pseudomallei) as the cause of diseases classified elsewhere; E87.70 Fluid overload, unspecified; B96.20 Unspecified Escherichia coli [E. coli] as the cause of diseases classified elsewhere; R60.1 Generalized edema; Z86.74 Personal history of sudden cardiac arrest; Z79.899 Other long term (current) drug therapy
CPT/HCPCS: 36415; 36430; 71045; 73200; 74018; 74176; 74177; 74250; 77012; 80048; 80053; 81001; 82270; 82728; 82962; 83540; 83735; 84100; 84132; 84484; 85014; 85018; 85025; 85610; 85730; 86644; 86850; 86900; 86901; 86920; 86945; 87040; 87070; 87075; 87081; 87086; 87340; 88305; 88309; 90935; 93005; 93306; 93971; 96374; 97110; 97163; 97167; 97530; 97535; 99285-25